=== PATIENT | female | born 1950 | race Caucasian/White ===

== ENCOUNTER → 2016-05-12 | Outpatient (CLI) | payer BC ==
[~2016-05-12] MED LIST: AMOX500C3 PO; ASPI-390 PO; ASPI325T39 PO; BUPR150T5 PO; CLR10 PO; DIPH25CA65 PO; FRS/40 PO; IBUP-103 PO; IBUP-1050 PO; LAMO100T16 PO; MELATAB2 PO; MULT-730 PO; NXM/40 PO; ONDA4TAB46 PO; OXYC-57 PO; POLYSOL4 OP; POTA8CAP6 PO; RSTOPS OPB; WLLXL300 PO
--- NOTE | 2016-05-13 07:31 | MAMMOGRAPHY REPORT ---
BILATERAL DIGITAL SCREENING MAMMOGRAM WITH CAD: 05/12/2016 CLINICAL HISTORY: Routine screening. Patient has no complaints. TECHNIQUE: Current study was also evaluated with a Computer Aided Detection (CAD) system. Bilatera l CC and MLO views were obtained. COMPARISON: Comparison is made to exams dated: 05/11/2015 mammogram, 05/08/2013 mammogram, 05/07/2012 m ammogram, 05/04/2011 mammogram, 04/29/2010 mammogram, and 05/09/2014 mammogram - [facility]. BREAST COMPOSITION: The tissue of both breasts is heterogeneously dense, which may obscure small ma sses. FINDINGS: No suspicious masses, calcifications, or areas of architectural distortion are noted in e ither breast. There has been no significant interval change compared to prior exams. IMPRESSION: ACR BI-RADS CATEGORY 1: NEGATIVE There is no mammographic evidence of malignancy. A 1 year screening mammogram is recommended. The p atient will receive written notification of the results. Approximately 10% of breast cancers are not detected with mammography. A negative mammographic repor t should not delay biopsy if a clinically suggestive mass is present. Sarah Bustamante M.D. /:05/12/2016 15:23:12 Telegrapher Agent: Sujey Elena, [facility] letter sent: Normal 1/2 BI-RADS Code: ACR BI-RADS Category 1: Negative
== END | disposition home or self-care (01) ==
LOC: C.MAMM 14:48
PROVIDERS: ATTEND Obstetrics & Gynecology
DX: Z12.31 Encounter for screening mammogram for malignant neoplasm of breast (principal)

== ENCOUNTER 2016-06-23 07:42 | Emergency (ER) | payer BC ==
[~2016-06-23] VITALS: Ht 172.7 cm; Wt 78.5 kg
[~2016-06-23 07:42] MED LIST changes: -AMOX500C3 PO; -ASPI-390 PO; -ASPI325T39 PO; -DIPH25CA65 PO; -IBUP-103 PO; -LAMO100T16 PO; -MELATAB2 PO; -ONDA4TAB46 PO; -OXYC-57 PO; -POLYSOL4 OP
[2016-06-23 07:51] VITALS: TEMP 36.5; Ht 172.7 cm; Wt 78.5 kg
[2016-06-23] MEDS ORDERED: ONDANSETRON INJ 2 MG/ML 2 ML VIAL IV STA (07:59)
[2016-06-23] MEDS ORDERED: ASPIRIN 324 MG CHEW PO STA (07:59)
[2016-06-23] MEDS ORDERED: MoRPHine SULFATE 10 MG/ML CARP/VIAL IV STA (07:59)
[2016-06-23 08:15] LABS: BASO % 0.4 %; BASO ABS # 0.04 K/uL (0-0.2); COMPLETE YES; EOS % 3.2 %; HEMATOCRIT 40.5 % (37-47); IG% 0.3 %; LYMPH % 39.1 %; LYMPH ABS # 3.93 K/uL (1.2-3.4); MEAN CELL VOLUME 81.3 fL (80-100); MEAN CORPUSCULAR HEMOGLOBIN 28.5 pg (25-34); MEAN CORPUSCULAR HGB CONC 35.1 g/dl (32-36); MEAN PLATELET VOLUME 9.3 fL (7.4-10.4); MONO % 6.5 %; NEUT % 50.5 %; PLATELET COUNT 423 K/uL (130-400); RED BLOOD COUNT 4.98 M/uL (4.2-5.4); WHITE BLOOD COUNT 10.05 K/uL (4.8-10.8)
[2016-06-23] MEDS ORDERED: ASPI325T39 PO (08:23)
[2016-06-23] MEDS ORDERED: OPTIRAY 320 IV PRN (08:30)
[2016-06-23] MEDS ORDERED: MoRPHine SULFATE 4 MG/ML 1 ML CARP\\VIAL IV STA (08:33)
--- NOTE | 2016-06-23 08:37 | DIAGNOSTIC IMAGING REPORT ---
CHEST ONE VIEW PORTABLE CLINICAL HISTORY: chest pain dyspnea COMPARISON STUDY: 12/03/2014 FINDINGS: Suboptimal visibility right cardiac border. Possibly of a lungs otherwise appear clear. Right middle lobe infiltrate is considered. IMPRESSION: Possible small parenchymal infiltrate right middle lobe Electronically signed by: Leonel Dewitt M.D. 06/23/2016 8:35 AM Dictated Date/Time: 06/23/2016 8:34 AM
[2016-06-23 08:49] LABS: ALT/SGPT 22 U/L (12-78); BLOOD UREA NITROGEN 17 mg/dl (7-18); BUN/CREATININE RATIO 15.3 (10-20); CALCIUM 9.8 mg/dl (8.5-10.1); CARBON DIOXIDE 24 mmol/L (21-32); CHLORIDE 104 mmol/L (98-107); GLUCOSE 121 mg/dl (70-99); SODIUM 138 mmol/L (136-145)
[2016-06-23 09:02] VITALS: O2SAT 99
[2016-06-23 09:21] VITALS: PULSE 68
[2016-06-23 09:27] LABS: ALKALINE PHOSPHATASE 96 U/L (45-117); AST/SGOT 17 U/L (15-37); CKMB/CK RATIO 1.8 (0-3.0)
--- NOTE | 2016-06-23 09:30 | DIAGNOSTIC IMAGING REPORT ---
CT ANGIOGRAPHY OF THE CHEST WITH AND WITHOUT CONTRAST DISSECTION PROTOCOL CLINICAL HISTORY: Severe chest, back and epigastric pain. Diaphoresis. Nausea. COMPARISON STUDY: Chest CT January 10, 2017. TECHNIQUE: Unenhanced and arterial phase imaging of the chest was performed. Injection of 117 cc of Optiray 320 IV was uneventful. Sagittal and coronal reconstructions were viewed as well as maximal intensity projections on an independent 3-D workstation. FINDINGS: The caliber of the thoracic aorta is normal. There is no intramural hematoma or thoracic aortic dissection. The size of the heart is normal. There is no pericardial effusion. A small hiatal hernia is present. There is no pneumothorax or pneumomediastinum. No pulmonary emboli are identified. No thoracic lymphadenopathy is present. A 1.6 cm partially calcified right lobe thyroid nodule is unchanged since CT of January 10, 2007. No consolidation is identified to suggest pneumonia. Groundglass opacities favor atelectasis. There is mild emphysema. Central airways are patent. Bony thorax is unremarkable. Mild gallbladder distention is noted without pericholecystic infiltration. IMPRESSION: 1. No thoracic aortic dissection. 2. No acute intrathoracic findings. 3. Small hiatal hernia. 4. Mild gallbladder distention. No pericholecystic infiltration. Electronically signed by: Erickson Argueta M.D. 06/23/2016 9:28 AM Dictated Date/Time: 06/23/2016 9:17 AM
[2016-06-23] MEDS ORDERED: LAMO100T16 PO (11:11)
--- NOTE | 2016-06-23 11:29 | DIAGNOSTIC IMAGING REPORT ---
Right upper quadrant ultrasound GALLBLADDER-ABD LIMITED CLINICAL HISTORY: nausea, rt upper quad pain pain. Nausea. TECHNIQUE: Ultrasound COMPARISON STUDY: 01/26/2015 FINDINGS: Trace gallbladder sludge. No shadowing gallstones. Common bile duct 6 mm. Fatty infiltration of liver. Pancreas and right kidney are unremarkable. No evidence for hydronephrosis. IMPRESSION: 1. Fatty infiltration of liver. 2. Small amount of gallbladder sludge. 3. Normal caliber bile ducts. Electronically signed by: Loenel Dewitt M.D. 06/23/2016 11:28 AM Dictated Date/Time: 06/23/2016 11:27 AM
[2016-06-23 11:56] VITALS: BP 121/66; O2SAT 96
[2016-06-23 12:12] LABS: URINE APPEARANCE CLEAR (CLEAR); URINE BILIRUBIN NEG (NEG); URINE COLOR YELLOW; URINE NITRITE NEG (NEG); URINE SPECIFIC GRAVITY > 1.045 (1.000-1.030); UROBILINOGEN NEG (NEG); ZZUR CULT IF INDIC CLEAN CATCH NO
[2016-06-23 12:14] LABS: MANUAL MICROSCOPIC REQUIRED? NO; REVIEW REQ? NO
--- NOTE | 2016-06-23 12:18 | EMERGENCY ROOM VISIT NOTE ---
History First contact with patient: 07:53 Chief Complaint: ABDOMINAL PAIN Stated Complaint: CHEST PAINS, NAUSEA, SWEATING, BACK PAIN Nursing Triage Summary: Triage note: Pt reports upper mid abd pain since approx 0430 today. pt reports nausea and vomitting. pt denies any diarrhrea. pt reports hx of hiatal hernia. History of Present Illness The patient is a 65 year old female who presents to the Emergency Room with complaints of epigastric pain at 4:30 this morning. The patient states initially it felt like a a pressure feeling that went up and down from her epigastric region to mid chest. Then it just started coming sharp in nature in the epigastric region and wrapping around both sides to her back. The patient denies any pain radiating to her shoulder blade. The patient denies any shortness of breath. She does admit to nausea and vomiting but denies any diarrhea. The patient denies any change in urinary symptoms. The patient denies any frequency, urgency, dysuria or hematuria. The patient states that she does have a history of GERD for which she is on Nexium. She also has a hiatal hernia. She states she took Pepto-Bismol for her symptoms today but immediately vomited. She currently rates her pain at a 10 out of 10. The patient states that she recently started a diet and has lost 10 pounds. She denies any recent significant weight loss. Review of Systems 10 system review was performed and was negative unless stated otherwise history of present illness. Past Medical/Surgical History Medical Problems: (1) Deviated nasal septum (2) Low back pain (3) Osteoarthritis (4) Right Hip DJD Family History Patient reports no known family medical history. Social History Smoking Status: Never Smoker Alcohol Use: occasionally Drug Use: none Marital Status: Housing Status: lives with significant other Occupation Status: unemployed Current/Historical Medications Scheduled Bupropion HCl (Bupropion HCl Xl), 300 MG PO QAM Bupropion Hcl (Bupropion Hcl Xl), 150 MG PO QAM Esomeprazole Magnesium (Nexium), 40 MG PO BID Lamotrigine (Lamictal), 100 MG PO DAILY Multiple Vitamins W/ Minerals (Alive Womens 50+), 2 TAB PO DAILY Scheduled PRN Furosemide (Lasix), 40 MG PO DAILY PRN for MD ORDER Ibuprofen (Advil), 400 MG PO DAILY PRN for Pain Loratadine (Claritin), 10 MG PO DAILY PRN for PRN Potassium Chloride (Klor-Con Ext Rel), 8 MEQ PO DAILY PRN for IF TAKING LASIX Miscellaneous Medications Aspirin (Aspirin Ec), 325 MG PO Allergies Coded Allergies: Sulfa Antibiotics (Verified Allergy, Intermediate, Rash / Swelling, ) Citalopram (Verified Allergy, Mild, rash,SWELLING, 07/26/15) Carisoprodol (Verified Allergy, Unknown, per cardio note, 07/26/15) Hydromorphone (Verified Adverse Reaction, Mild, ITCHING, 07/26/15) pt states will take after pretreating with benadryl Sumatriptan (Verified Adverse Reaction, Mild, UNDER SKIN SENSATION CREEPING, 07/26/15) Meperidine (Verified Adverse Reaction, Unknown, VOMITING, 07/26/15) Oxycodone (Verified Adverse Reaction, Unknown, pruritis per cardio note, ) Physical Exam Vital Signs Date Time Temp Pulse Resp B/P Pulse Ox O2 Delivery O2 Flow Rate FiO2 06/23/16 11:56 121/66 96 Room Air 06/23/16 09:21 68 150/78 98 Nasal Cannula 06/23/16 09:02 99 Nasal Cannula 2.0 06/23/16 08:58 65 181/89 98 Nasal Cannula 2.0 06/23/16 08:00 70 06/23/16 07:54 97 Room Air 06/23/16 07:51 36.5 81 20 163/115 96 Room Air Physical Exam GENERAL: 65-year-old white female appears uncomfortable secondary to pain. MENTAL Status: Alert and oriented 3. MOUTH: Mucosa is moist NECK: Supple, no lymphadenopathy noted. No carotid bruits noted. LUNGS: Clear auscultation without wheezes rales or rhonchi. CARDIAC: Regular rate and rhythm without murmur. Pulses is full and equal throughout. BACK: No CVA tenderness noted. ABDOMEN: Positive bowel sounds all 4 quadrants. Soft, tenderness palpation in the epigastric region otherwise nontender to palpation without organomegaly or masses. EXTREMITIES: No cyanosis or edema noted. Medical Decision & Procedures ER Provider Diagnostic Interpretation: CT ANGIOGRAPHY OF THE CHEST WITH AND WITHOUT CONTRAST DISSECTION PROTOCOL CLINICAL HISTORY: Severe chest, back and epigastric pain. Diaphoresis. Nausea. COMPARISON STUDY: Chest CT January 10, 2017. TECHNIQUE: Unenhanced and arterial phase imaging of the chest was performed. Injection of 117 cc of Optiray 320 IV was uneventful. Sagittal and coronal reconstructions were viewed as well as maximal intensity projections on an independent 3-D workstation. FINDINGS: The caliber of the thoracic aorta is normal. There is no intramural hematoma or thoracic aortic dissection. The size of the heart is normal. There is no pericardial effusion. A small hiatal hernia is present. There is no pneumothorax or pneumomediastinum. No pulmonary emboli are identified. No thoracic lymphadenopathy is present. A 1.6 cm partially calcified right lobe thyroid nodule is unchanged since CT of January 10, 2007. No consolidation is identified to suggest pneumonia. Groundglass opacities favor atelectasis. There is mild emphysema. Central airways are patent. Bony thorax is unremarkable. Mild gallbladder distention is noted without pericholecystic infiltration. IMPRESSION: 1. No thoracic aortic dissection. 2. No acute intrathoracic findings. 3. Small hiatal hernia. 4. Mild gallbladder distention. No pericholecystic infiltration. Electronically signed by: Erickson Argueta M.D. 06/23/2016 9:28 AM Dictated Date/Time: 06/23/2016 9:17 AM Right upper quadrant ultrasound GALLBLADDER-ABD LIMITED CLINICAL HISTORY: nausea, rt upper quad pain pain. Nausea. TECHNIQUE: Ultrasound COMPARISON STUDY: 01/26/2015 FINDINGS: Trace gallbladder sludge. No shadowing gallstones. Common bile duct 6 mm. Fatty infiltration of liver. Pancreas and right kidney are unremarkable. No evidence for hydronephrosis. IMPRESSION: 1. Fatty infiltration of liver. 2. Small amount of gallbladder sludge. 3. Normal caliber bile ducts. Electronically signed by: Leonel Dewitt M.D. Laboratory Results 06/23/16 07:55 Red Blood Count 4.98, Mean Corpuscular Volume 81.3, Mean Corpuscular Hemoglobin 28.5, Mean Corpuscular Hemoglobin Concent 35.1, Mean Platelet Volume 9.3, Neutrophils (%) (Auto) 50.5, Lymphocytes (%) (Auto) 39.1, Monocytes (%) (Auto) 6.5, Eosinophils (%) (Auto) 3.2, Basophils (%) (Auto) 0.4, Neutrophils # (Auto) 5.08, Lymphocytes # (Auto) 3.93, Monocytes # (Auto) 0.65, Eosinophils # (Auto) 0.32, Basophils # (Auto) 0.04 06/23/16 07:55 Test 06/23/16 07:55 06/23/16 10:42 06/23/16 11:50 White Blood Count 10.05 K/uL (4.8-10.8) Red Blood Count 4.98 M/uL (4.2-5.4) Hemoglobin 14.2 g/dL (12.0-16.0) Hematocrit 40.5 % (37-47) Mean Corpuscular Volume 81.3 fL (80-100) Mean Corpuscular Hemoglobin 28.5 pg (25-34) Mean Corpuscular Hemoglobin Concent 35.1 g/dl (32-36) Platelet Count 423 K/uL (130-400) Mean Platelet Volume 9.3 fL (7.4-10.4) Neutrophils (%) (Auto) 50.5 % Lymphocytes (%) (Auto) 39.1 % Monocytes (%) (Auto) 6.5 % Eosinophils (%) (Auto) 3.2 % Basophils (%) (Auto) 0.4 % Neutrophils # (Auto) 5.08 K/uL (1.4-6.5) Lymphocytes # (Auto) 3.93 K/uL (1.2-3.4) Monocytes # (Auto) 0.65 K/uL (0.11-0.59) Eosinophils # (Auto) 0.32 K/uL (0-0.5) Basophils # (Auto) 0.04 K/uL (0-0.2) RDW Standard Deviation 39.9 fL (36.4-46.3) RDW Coefficient of Variation 13.4 % (11.5-14.5) Immature Granulocyte % (Auto) 0.3 % Immature Granulocyte # (Auto) 0.03 K/uL (0.00-0.02) Anion Gap 10.0 mmol/L (3-11) Est Creatinine Clear Calc Drug Dose 56.9 ml/min Estimated GFR () 61.4 Estimated GFR (Non- 53.0 BUN/Creatinine Ratio 15.3 (10-20) Calcium Level 9.8 mg/dl (8.5-10.1) Total Bilirubin 0.3 mg/dl (0.2-1) Direct Bilirubin mg/dl (0-0.2) Aspartate Amino Transf (AST/SGOT) 17 U/L (15-37) Alanine Aminotransferase (ALT/SGPT) 22 U/L (12-78) Alkaline Phosphatase 96 U/L (45-117) Total Creatine Kinase 90 U/L (26-192) Creatine Kinase MB 1.6 ng/ml (0.5-3.6) Creatine Kinase MB Ratio 1.8 (0-3.0) Pro-B-Type Natriuretic Peptide 65 pg/ml (0-900) Total Protein 7.7 gm/dl (6.4-8.2) Albumin 4.4 gm/dl (3.4-5.0) Lipase 168 U/L (73-393) Chemistry Specimen Hemolysis Bedside Troponin I 0.000 ng/ml (0-0.045) Medications Administered Medications (Trade) Dose Ordered Sig/Natalya Route Start Time Stop Time Status Last Admin Dose Admin Aspirin (Aspirin Chew) 324 mg NOW STAT PO 06/23/16 07:59 06/23/16 08:02 DC 06/23/16 08:07 324 MG Morphine Sulfate (MoRPHine SULFATE INJ) 6 mg NOW STAT IV 06/23/16 07:59 06/23/16 08:03 DC 06/23/16 08:07 6 MG Ondansetron HCl (Zofran Inj) 4 mg NOW STAT IV 06/23/16 07:59 06/23/16 08:03 DC 06/23/16 08:06 4 MG Morphine Sulfate (MoRPHine SULFATE INJ) 4 mg NOW STAT IV 06/23/16 08:33 06/23/16 08:34 DC 06/23/16 08:40 4 MG ECG Indication: vomiting Rhythm: normal sinus Findings: no acute ischemic change ED Course The patient was evaluated. EKG was ordered and interpreted as above. The patient was placed on a monitor and continuous pulse ox. IV access was obtained. The patient was given 324 mg of chewable aspirin. She was given morphine 6 mg IV and Zofran 4 mg IV. The patient continued to be in pain and was given additional 4 mg of IV morphine. CBC and differential, renal profile, LFTs and lipase levels were ordered. Urinalysis was ordered. Urinalysis was unremarkable. Troponin was negative 2. Labs are reviewed. White count was normal. Otherwise labs were unremarkable. LFTs were normal. Chest x-ray was ordered and interpreted by the radiologist as above without any acute findings. CT angiogram for dissection was ordered without any acute findings. Ultrasound of the gallbladder was ordered and interpreted as above with sludge within the gallbladder. The patient was informed of all findings and discharged home in stable condition. Medical Decision Differential diagnosis include acute [place], peptic ulcer disease, acute cholecystitis, cholelithiasis, GERD Due to the findings of sludge within the gallbladder I feel that this was most likely the etiology of her pain. Impression Primary Impression: Gallbladder sludge Departure Information Dispostion Home / Self-Care Condition GOOD Referrals Ty Tate M.D. (PCP) Forms HOME CARE DOCUMENTATION FORM, IMPORTANT VISIT INFORMATION Patient Instructions My [facility] [facility] Additional Instructions Recommend follow-up with your family doctor for a follow-up HIDA scan of your gallbladder. Further evaluation and treatment will be based upon scan results. Also if you have recurrent symptoms return to ER immediately. Also would recommend that you get your cholesterol checked by her PCP. Low-fat diet until evaluated by your PCP.
[2016-09-23] MEDS ORDERED: POLYSOL4 OP (13:56)
[2016-09-23] MEDS ORDERED: IBUP-103 PO (13:56)
[2016-09-23] MEDS ORDERED: MELATAB2 PO (13:56)
[2016-09-23] MEDS ORDERED: AMOX500C3 PO (13:56)
[2016-09-23] MEDS ORDERED: DIPH25CA65 PO (13:56)
[2016-09-23] MEDS ORDERED: ASPI-390 PO (13:58)
== END 2016-06-23 12:23 | disposition home or self-care (01) ==
LOC: C.EDB 07:46
DX: K83.8 Other specified diseases of biliary tract (principal); K21.9 Gastro-esophageal reflux disease without esophagitis; K44.9 Diaphragmatic hernia without obstruction or gangrene; J34.2 Deviated nasal septum; M16.11 Unilateral primary osteoarthritis, right hip

== ENCOUNTER → 2016-06-30 | Outpatient (CLI) | payer BC ==
[~2016-06-30] MED LIST changes: +AMOX500C3 PO; +ASPI-390 PO; +ASPI325T39 PO; +DIPH25CA65 PO; +IBUP-103 PO; +LAMO100T16 PO; +MELATAB2 PO; +ONDA4TAB46 PO; +OXYC-57 PO; +POLYSOL4 OP; -RSTOPS OPB; +SINCALIDE INJ 1.5 MCG in SODIUM CHLORIDE 0.9% 100ML 100 ML IV ONE
--- NOTE | 2016-06-30 15:24 | DIAGNOSTIC IMAGING REPORT ---
ADDENDUM Addendum: There was a voice recognition error in the body report and impression. The gallbladder ejection fraction was 19% (incorrectly reported as 90%). IMPRESSION: 1. No evidence of cystic duct obstruction 2. Abnormally low gallbladder ejection fraction calculated to be 19% Electronically signed by: Teddy Castellon M.D. 07/06/2016 6:51 AM Dictated Date/Time: 07/06/2016 6:50 AM ORIGINAL REPORT NUCLEAR MEDICINE HEPATOBILIARY SCAN WITH EJECTION FRACTION HISTORY: Abnormal gallbladder ultrasound. COMPARISON: Abdominal ultrasound 06/23/2016. TECHNIQUE: Immediately following the intravenous administration of 5.4 mCi Tc-99m Choletec, dynamic anterior abdominal imaging pre/post 1.5 mcg of Kinevac was performed. FINDINGS: Uniform hepatic tracer accumulation is shown. Prompt intrahepatic biliary excretion is seen. The gallbladder, common bile duct, and small bowel are all visualized by 35 minutes. This appearance represents the normal sequence of biliary excretion. The gall bladder ejection fraction following administration of Kinevac was 90% (normal >35%). IMPRESSION: 1. No evidence for cystic duct obstruction. 2. Abnormally low gallbladder ejection fraction calculated to be 90 %. Electronically signed by: Edison Bermudez M.D. 06/30/2016 3:23 PM Dictated Date/Time: 06/30/2016 3:22 PM
== END | disposition home or self-care (01) ==
LOC: C.NUCL 12:53
PROVIDERS: ATTEND Family Medicine
DX: R93.2 Abnormal findings on diagnostic imaging of liver and biliary tract (principal)

== ENCOUNTER → 2016-09-23 | Outpatient (CLI) | payer BC ==
[~2016-09-23] MED LIST changes: -SINCALIDE INJ 1.5 MCG in SODIUM CHLORIDE 0.9% 100ML 100 ML IV ONE
--- NOTE | 2016-09-23 12:58 | DIAGNOSTIC IMAGING REPORT ---
THYROID ULTRASONOGRAPHY CLINICAL HISTORY: E04.1 Right thyroid nodule COMPARISON STUDY: No previous studies for comparison. FINDINGS: The right lobe of thyroid measures 4.8 x 1.7 x 2.4 cm. There is diffuse in image 80 of thyroid echotexture. There is an irregular marginated lower pole right lobe thyroid nodule containing multiple calcifications measuring 24 x 17 x 18 mm. There are few tiny upper pole cystic nodules on the right. The left lobe measures 4.6 x 1.3 x 1.7 cm. The lobe is heterogeneous in echotexture. There are multiple hypoechoic circumscribed nodules, the 2 largest of which measures 7 mm. At least one of the nodules demonstrate colloid artifact. IMPRESSION: Multinodular thyroid gland. Biopsy of the irregularly marginated lower pole right lobe thyroid nodule containing multiple calcifications measuring 24 x 18 x 17 mm is recommended. Electronically signed by: Teddy Castellon M.D. 09/23/2016 12:57 PM Dictated Date/Time: 09/23/2016 12:53 PM
== END | disposition home or self-care (01) ==
LOC: C.ULTR 12:12
PROVIDERS: ATTEND Physician Assistant
DX: E04.1 Nontoxic single thyroid nodule (principal)

== ENCOUNTER 2016-10-06 05:17 | Day surgery (SDC) | payer BC ==
[2016-09-23 13:59] VITALS: BMI 24.0
[2016-09-23 14:05] LABS: BASO % 0.7 %; BASO ABS # 0.04 K/uL (0-0.2); COMPLETE YES; EOS % 4.4 %; IG% 0.4 %; LYMPH % 30.1 %; MEAN CELL VOLUME 85.3 fL (80-100); MEAN CORPUSCULAR HEMOGLOBIN 28.7 pg (25-34); MEAN CORPUSCULAR HGB CONC 33.6 g/dl (32-36); MEAN PLATELET VOLUME 9.2 fL (7.4-10.4); MONO % 6.2 %; NEUT % 58.2 %; PLATELET COUNT 348 K/uL (130-400); RED BLOOD COUNT 4.57 M/uL (4.2-5.4); WHITE BLOOD COUNT 5.64 K/uL (4.8-10.8)
[2016-09-23 14:29] LABS: BUN/CREATININE RATIO 16.3 (10-20); CREATININE 0.95 mg/dl (0.60-1.20); POTASSIUM 3.6 mmol/L (3.5-5.1)
--- NOTE | 2016-09-23 14:34 | PAT Medication Instructions ---
Service Date Sep 23, 2016. Current Home Medication List Amoxicillin (Amoxil), 2,000 MG PO UD Vbramjr-Lggakifhuapsq-Aqzbjwbb (Excedrin Migraine), 2 TAB PO PRN Bupropion HCl (Bupropion HCl Xl), 300 MG PO QAM Bupropion Hcl (Bupropion Hcl Xl), 150 MG PO QAM Diphenhydramine Hcl (Benadryl Allergy), 1 CAP PO HS PRN for PRN Esomeprazole Magnesium (Nexium), 40 MG PO QAM Furosemide (Lasix), 40 MG PO DAILY PRN for MD ORDER Ibuprofen Tab (Advil), 600-800 MG PO PRN Lamotrigine (Lamictal), 100 MG PO QAM Melatonin (Melatonin Maximum Strengt), 1 TAB PO HS PRN for PRN Multiple Vitamins W/ Minerals (Alive Womens 50+), 2 TAB PO DAILY Polyethylene Glycol-Propylene (Systane), 1 DROPS OP QID PRN for PRN Potassium Chloride (Klor-Con Ext Rel), 8 MEQ PO DAILY PRN for IF TAKING LASIX Medication Instructions For Your Scheduled Surgery Daqvgme-Kwdrgqspxujur-Ombglole (Excedrin Migraine), 2 TAB PO PRN (patient will check with surgeon for instructions) Ibuprofen Tab (Advil), 600-800 MG PO PRN (patient will check with surgeon for instructions) - Hold the following medications the morning of surgery: Potassium Chloride (Klor-Con Ext Rel), 8 MEQ PO DAILY PRN for IF TAKING LASIX Multiple Vitamins W/ Minerals (Alive Womens 50+), 2 TAB PO DAILY Furosemide (Lasix), 40 MG PO DAILY PRN for MD ORDER Amoxicillin (Amoxil), 2,000 MG PO UD (PRN for dental procedures) - Take the following medications the morning of surgery with a sip of water: Polyethylene Glycol-Propylene (Systane), 1 DROPS OP QID PRN for PRN Lamotrigine (Lamictal), 100 MG PO QAM Esomeprazole Magnesium (Nexium), 40 MG PO QAM Bupropion HCl (Bupropion HCl Xl), - Take the following medications as scheduled the night before surgery: Polyethylene Glycol-Propylene (Systane), 1 DROPS OP QID PRN for PRN Melatonin (Melatonin Maximum Strengt), 1 TAB PO HS PRN for PRN Diphenhydramine Hcl (Benadryl Allergy), 1 CAP PO HS PRN for PRN If you have any questions please call us at [phone] or [phone] ( [place]) or [phone]
[~2016-10-06] VITALS: Ht 172.7 cm; Wt 72.2 kg
[~2016-10-06 05:17] MED LIST changes: -ASPI325T39 PO; -CLR10 PO; -IBUP-1050 PO; -ONDA4TAB46 PO; -OXYC-57 PO
[2016-10-06 05:35] VITALS: BP 119/61; PULSE 73; TEMP 36.6; O2SAT 98; Ht 172.7 cm; Wt 72.2 kg
[2016-10-06] MEDS ORDERED: LACTATED RINGER'S 1000ML 1,000 ML IV SCH ×2 (06:00→08:29)
[2016-10-06] MEDS ORDERED: NEOSTIGMINE METHYLSULFATE 5 MG/5 ML SYR ONE (06:13)
[2016-10-06] MEDS ORDERED: GLYCOPYRROLATE INJ 0.2 MG/ML VIAL ONE (06:13)
[2016-10-06] MEDS ORDERED: ONDANSETRON INJ 2 MG/ML 2 ML VIAL ONE (06:13)
[2016-10-06] MEDS ORDERED: DEXAMETHASONE SOD INJ 4 MG/ML VIAL ONE (06:13)
[2016-10-06] MEDS ORDERED: ROCURONIUM BROMIDE 10 MG/ML 5 ML VIAL ONE (06:13)
[2016-10-06] MEDS ORDERED: PROPOFOL IV EMULSION 10 MG/ML 20 ML VIAL IV ONE (06:13)
[2016-10-06] MEDS ORDERED: MIDAZOLAM HCL 1 MG/ML 2ML VIAL ONE (06:14)
[2016-10-06] MEDS ORDERED: FENTANYL CITRATE INJ 50 MCG/1 ML 2 ML VIAL ONE (06:14)
[2016-10-06] MEDS ORDERED: LIDOCAINE/EPINEPHRINE 1% 20 ML VIAL ONE (06:36)
[2016-10-06] MEDS ORDERED: CONRAY 60% 50 ML VIAL ONE (06:36)
--- NOTE | 2016-10-06 06:45 | History & Physical Bridge Note ---
H&P Re-Evaluation Bridge Note: I have examined the patient, reviewed the History & Physical and in the interval since the performance of the History & Physical I have noted the following changes of clinical significance: No changes noted at bedside
[2016-10-06] MEDS ORDERED: LABETALOL HCL IV 5 MG/ML 20ML IV ONE (07:33)
[2016-10-06] MEDS ORDERED: CEFAZOLIN SOD 1 GM VIAL ONE (07:40)
[2016-10-06] MEDS ORDERED: GLUCAGON FOR INJ 1 MG VIAL ONE (07:51)
[2016-10-06] MEDS ORDERED: LARYING-O-JET KIT (LTA) ONE ×2 (08:05)
[2016-10-06] MEDS ORDERED: KETOROLAC TROMETHAMINE 30 MG/ML VIAL ONE (08:05)
[2016-10-06] MEDS ORDERED: ONDANSETRON INJ 2 MG/ML 2 ML VIAL IV PRN ×2 (08:15→08:30)
[2016-10-06] MEDS ORDERED: PROMETHAZINE HCL INJ 6.25 MG in SODIUM CHLORIDE 0.9% 50ML 50 ML IV PRN (08:15)
[2016-10-06] MEDS ORDERED: EpHEDrine SULFATE INJ 50 MG/ML AMP IV PRN (08:15)
[2016-10-06] MEDS ORDERED: ATROPINE SULFATE 0.1 MG/ML 5ML SYR IV PRN (08:15)
--- NOTE | 2016-10-06 08:24 | DIAGNOSTIC IMAGING REPORT ---
INTRAOPERATIVE CHOLANGIOGRAM HISTORY: Post cholecystectomy. FLUOROSCOPY TIME: 3 seconds. FINDINGS: Fluoroscopy was provided for an intraoperative cholangiogram status post cholecystectomy. Contrast was injected through the cystic duct remnant. The common bile duct is normal in course and caliber. There are no filling defects seen within the common bile duct to suggest a retained stone. This is seen only on the final image. Images prior demonstrate a small amount of debris within the distal common duct. Contrast extends into the small bowel. There is no intrahepatic bile duct dilatation. IMPRESSION: Fluoroscopy provided for an intraoperative cholangiogram status post cholecystectomy. No filling defects within the common bile duct. Initial images demonstrate debris within the distal common duct. This is not seen on the final image. Electronically signed by: Leonel Dewitt M.D. 10/06/2016 8:23 AM Dictated Date/Time: 10/06/2016 8:21 AM
[2016-10-06] MEDS ORDERED: OXYCODONE/ACETAMINOPHEN 5-325 TAB PO PRN (08:30)
[2016-10-06] MEDS ORDERED: MoRPHine SULFATE 2 MG/ML CARP IV PRN (08:30)
[2016-10-06] MEDS ORDERED: OXYC-57 PO (08:30)
--- NOTE | 2016-10-06 08:31 | [facility] Post Operative Brief Note ---
Immediate Operative Summary Operative Date Oct 06, 2016. Pre-Operative Diagnosis Cholelithiasis Post-Operative Diagnosis Same with cbd stoes Procedure(s) Performed Laparoscopic Cholecystectomy with Cholangiogram Surgeon Dr Goldberg Trim Mechanic Surgeon(s) Jere Hung PA-C Estimated Blood Loss 10ML Findings ccc with cbc stones Specimens A. Gallbladder Drains #19 mitch per stab
--- NOTE | 2016-10-06 08:32 | Discharge Instructions ---
Discharge Instructions Date of Service Oct 06, 2016. Visit Reason for Visit: Cholelithiasis Discharge Discharge Diagnosis / Problem: laparoscpic cholecystectomy Discharge Goals Goal(s): Decrease discomfort Activity Recommendations Activity Limitations: as noted below Lifting Limitations: no more than 10 pounds Shower/Bathe: tomorrow Driving or Machine Use: resume 3 days after discharge Anesthesia . Post Anesthesia Instructions: If you have had General Anesthesia or IV Sedation: * Do not drive today. * Resume driving when surgeon permits. * Do not make important decisions or sign legal documents today. * Call surgeon for: 1. Temperature elevations greater than 101 degrees F. 2. Uncontrollable pain. 3. Excessive bleeding. 4. Persistent nausea and vomiting. 5. Medication intolerance (nausea, vomiting or rash). * For nausea and vomiting use only clear liquids such as: tea, soda, bouillon until nausea subsides, then gradually increase diet as tolerated. * If you have any concerns or questions, call your surgeon's office. If physician is unavailable and it is an emergency, call 911 or go to the nearest emergency room. . Instructions / Follow-Up Instructions / Follow-Up Dr. Goldberg's office on Monday to have drain removed, call [phone] to schedule Empty drain 2-3 times daily Diet Recommendations Recommended Home Diet: no limitations Procedures Procedures Performed: Laparoscopic Cholecystectomy with Cholangiogram Pending Studies Studies pending at discharge: no Medical Emergencies . Who to Call and When: Medical Emergencies: If at any time you feel your situation is an emergency, please call 911 immediately. . Non-Emergent Contact Non-Emergency issues call your: Surgeon Call Non-Emergent contact if: you have a fever, temperature is above 101.5, your pain is not controlled, wound has increased redness, you have any medication questions . . "Provider Documentation" section prepared by Jere Hnug. .
--- NOTE | 2016-10-06 08:39 | [facility] Operative Report ---
Operative Report Operative Date Oct 06, 2016. Pre-Operative Diagnosis Cholelithiasis Post-Operative Diagnosis ccc and cbd stone Procedure(s) Performed lap cholecystectomy, c,gram Surgeon Dr Goldberg Fiber Optic Assembler Surgeon(s) Jere Hung PA-C Estimated Blood Loss 10ML Findings ccc and cbd stones Specimens A. Gallbladder Drains #19 mitch per stab I attest to the content of the Intraoperative Record and any orders documented therein. Any exceptions are noted below.
[2016-10-06] MEDS: FENTANYL CITRATE INJ 50 MCG/1 ML 2 ML VIAL IV PRN ×2 (08:46→09:04)
--- NOTE | 2016-10-06 09:29 | Anesthesiology Progress Note ---
Anesthesia Post Op Note Date & Time Oct 06, 2016 at 09:28 Vital Signs Pain Intensity: 4 Vital Signs Past 12 Hours Date Time Temp Pulse Resp B/P (MAP) Pulse Ox O2 Delivery O2 Flow Rate FiO2 10/06/16 09:26 131/75 10/06/16 09:23 60 16 93 10/06/16 09:23 59 16 10/06/16 09:21 122/60 10/06/16 09:18 62 16 10/06/16 09:18 62 16 92 10/06/16 09:17 64 16 94 10/06/16 09:17 66 16 10/06/16 09:16 125/66 10/06/16 09:12 60 16 95 10/06/16 09:12 61 16 10/06/16 09:11 122/77 10/06/16 09:07 58 16 10/06/16 09:07 59 16 97 10/06/16 09:06 127/59 10/06/16 09:04 66 14 97 10/06/16 09:04 66 14 10/06/16 09:01 121/52 10/06/16 08:59 63 16 10/06/16 08:59 64 16 97 10/06/16 08:58 63 16 10/06/16 08:58 64 16 96 10/06/16 08:56 135/62 10/06/16 08:53 66 16 10/06/16 08:53 66 16 92 10/06/16 08:52 137/82 10/06/16 08:48 62 16 10/06/16 08:48 62 16 99 10/06/16 08:47 67 16 99 10/06/16 08:47 67 16 10/06/16 08:46 166/70 10/06/16 08:42 71 12 99 10/06/16 08:42 71 12 10/06/16 08:41 156/71 10/06/16 08:37 77 18 152/90 99 10/06/16 08:37 77 18 10/06/16 08:33 169/72 10/06/16 08:32 77 18 10/06/16 08:32 36.3 78 16 169/72 98 Mask 10 10/06/16 08:32 77 18 99 10/06/16 05:35 36.6 73 18 119/61 (80) 98 Room Air Notes Mental Status: alert / awake / arousable, participated in evaluation Pt Amnestic to Procedure: Yes Nausea / Vomiting: adequately controlled Pain: adequately controlled Airway Patency, RR, SpO2: stable & adequate BP & HR: stable & adequate Hydration State: stable & adequate Anesthetic Complications: no major complications apparent
[2016-10-06 09:35] VITALS: BP 129/64; PULSE 68; TEMP 36.6; O2SAT 95
[2016-10-06 10:05] VITALS: BP 128/58; PULSE 60; TEMP 36.3; O2SAT 93
[2016-10-06 10:40] VITALS: BP 129/56; PULSE 66; TEMP 36.6; O2SAT 96
[2016-10-06 11:05] VITALS: BP 129/56; PULSE 66; TEMP 36.6; O2SAT 96
[2016-10-06] MEDS ORDERED: ONDA4TAB46 PO (19:47)
--- NOTE | 2016-10-14 09:29 | [facility] Operative Report ---
Operative Report Operative Date Oct 14, 2016. Pre-Operative Diagnosis Cholelithiasis Post-Operative Diagnosis Same with cbd stoes Procedure(s) Performed Laparoscopic Cholecystectomy with Cholangiogram Surgeon Dr Goldberg Animal Taxonomist Surgeon(s) Jere Hung PA-C Estimated Blood Loss 10ML Findings ccc with cbd stones Specimens A. Gallbladder Drains #19 mitch per stab Description of Procedure After induction of general the abdomen was prepped with Betadine solution and properly draped. The patient was quite obese, had a very thin abdominal wall. We made a small incision supraumbilically sufficient enough to place a 5 mm trocar after we placed the Veress needle and CO2 insufflated. At this point once we entered the camera, we placed the patient in reverse Trendelenburg position, rotated to the left. Under direct visualization, we placed a 5 mm epigastric, two 5 mm subcostal ports with preemptive local anesthesia 1% Xylocaine without epinephrine. We were able to elevate it with the lateral grasper, but it was difficult to get down to the luther hepatis and triangle of [place]. The patient had a significant amount of omental tissue that needed to be exposed, some adhesions to the gallbladder were taken down by blunt dissection and some sharp dissection. This necessitated to place another 5 mm trocar, which we did between the epigastric and umbilical area under direct visualization and then placed a fan retractor to push down the omentum. With dissection then we were down towards the neck of the gallbladder, identified a structure we were able to get around with that was small but appeared to be the cystic duct. We clamped it proximally high at the takeoff of the gallbladder. A small opening was made in this duct which showed some debris then clear bile. At this point, a #4 urethral catheter transversing the abdominal wall and an Angiocath was positioned in the cystic duct. Serial x-rays were taken which showed distal cbd stone, Glucagon given and cbd flushed , final cholangiogram free flow duodenum At this point the cholangiocatheter was removed. Two clips were placed on the cystic duct and secured in place and divided, then we freed up the gallbladder, a lot of this was edematous, mostly by blunt dissection, but we used cautery 25. We were able then to free up some of the fatty tissue that pretty much overlapped the whole gallbladder going up. We identified 2 small arteries that were coming out. We clipped them proximally and distally and were able then to free the gallbladder all the way up to the fundus of the gallbladder. We checked the area for hemostasis. There was some minimal oozing. I at this point, took the gallbladder off the liver bed, placed in an Endopouch and took out intact through the epigastric port. . We then checked the subhepatic and suprahepatic area for hemostasis and appeared satisfactory. 19 mitch drain positioned subhepatically and taken out lat port site. We had hemostasis good and we suctioned out the area. Therefore, we placed a camera in subcostal port to visualize the umbilical opening and the other ports to make sure there was no bleeding and then under direct visualization each port was removed. Wounds were closed with 4-0 Monocryl, Steri-Strips applied. The procedure was tolerated well by the patient. Estimated blood loss approximately 10 mL. The patient was taken to recovery room in good condition. I attest to the content of the Intraoperative Record and any orders documented therein. Any exceptions are noted below.
== END 2016-10-06 11:20 | disposition home or self-care (01) ==
LOC: C.ACU 05:17
PROVIDERS: ATTEND Surgery
DX: K80.12 Calculus of gallbladder with acute and chronic cholecystitis without obstruction (principal); K21.9 Gastro-esophageal reflux disease without esophagitis; F32.9 Major depressive disorder, single episode, unspecified; J34.2 Deviated nasal septum; Z78.0 Asymptomatic menopausal state; H40.9 Unspecified glaucoma; J34.3 Hypertrophy of nasal turbinates; G47.30 Sleep apnea, unspecified; E04.1 Nontoxic single thyroid nodule; Z87.891 Personal history of nicotine dependence; Z79.899 Other long term (current) drug therapy

== ENCOUNTER 2016-10-06 19:13 | Emergency (ER) | payer BC ==
[~2016-10-06] VITALS: Ht 172.7 cm; Wt 69.0 kg
[~2016-10-06 19:13] MED LIST changes: +OXYC-57 PO
[2016-10-06 19:20] VITALS: TEMP 36.8; Ht 172.7 cm; Wt 69.0 kg
[2016-10-06] MEDS ORDERED: SODIUM CHLORIDE 0.9% 1000ML 1,000 ML IV STA ×2 (19:47)
[2016-10-06] MEDS ORDERED: ONDA4TAB46 PO (19:47)
[2016-10-06] MEDS ORDERED: PROMETHAZINE HCL INJ 25 MG in SODIUM CHLORIDE 0.9% 50ML 50 ML IV STA ×2 (19:55→20:14)
[2016-10-06] MEDS ORDERED: HYDROmorphone INJ 1 MG/ML SYR IV PRN (20:00)
[2016-10-06 20:03] LABS: COMPLETE YES; HEMATOCRIT 39.1 % (37-47); IG% 0.1 %; LYMPH % 7.9 %; LYMPH ABS # 0.53 K/uL (1.2-3.4); MEAN CELL VOLUME 84.6 fL (80-100); MEAN CORPUSCULAR HGB CONC 34.3 g/dl (32-36); MEAN PLATELET VOLUME 9.3 fL (7.4-10.4); MONO % 2.5 %; NEUT % 89.5 %; PLATELET COUNT 336 K/uL (130-400); RED BLOOD COUNT 4.62 M/uL (4.2-5.4); WHITE BLOOD COUNT 6.71 K/uL (4.8-10.8)
[2016-10-06 20:14] LABS: BUN/CREATININE RATIO 13.3 (10-20); CALCIUM 9.5 mg/dl (8.5-10.1); CREATININE 0.91 mg/dl (0.60-1.20); POTASSIUM 4.1 mmol/L (3.5-5.1)
[2016-10-06] MEDS: MoRPHine SULFATE 4 MG/ML 1 ML CARP\\VIAL IV PRN ×2 (20:20→23:13)
--- NOTE | 2016-10-06 22:15 | DIAGNOSTIC IMAGING REPORT ---
PA CHEST RADIOGRAPH AND UPRIGHT AND SUPINE AP RADIOGRAPHS OF THE ABDOMEN CLINICAL HISTORY: Nausea and vomiting. Status post cholecystectomy this morning. COMPARISON STUDY: Chest radiograph June 23, 2016 and right upper quadrant ultrasound June 23, 2016. FINDINGS: There is moderate elevation of the right hemidiaphragm. There is no evidence of pulmonary edema. There is no pneumothorax. Right lower lung airspace opacity is present. Lucency under the right hemidiaphragm represents pneumoperitoneum. A right upper quadrant surgical drain is in place. There are cholecystectomy clips. A right hip arthroplasty is noted. There is no evidence of a bowel obstruction. There is a moderate amount of stool within the colon. Hyperdense material within the right lower quadrant likely reflects contrast from intraoperative cholangiogram. IMPRESSION: 1. No evidence for a bowel obstruction. Moderate amount of stool within the colon. 2. Small amount of pneumoperitoneum, an expected finding in early postoperative setting. Right upper quadrant surgical drain in place. Hyperdense material within the right lower quadrant likely reflects contrast from intraoperative cholangiogram. It's not clear whether this is intraluminal or extraluminal. 3. Right lower lung airspace opacity which favors atelectasis. Pneumonia could appear similar but is considered less likely. Electronically signed by: Erickson Argueta M.D. 10/06/2016 10:14 PM Dictated Date/Time: 10/06/2016 10:09 PM
[2016-10-06] MEDS ORDERED: PHENERGAN 25MG HOMEPACK PO ONE (22:45)
[2016-10-06] MEDS ORDERED: NORCO 5/325MG HOME PACK PO ONE (22:45)
[2016-10-06] MEDS ORDERED: SODIUM CHLORIDE 0.9% 500ML 500 ML IV STA (23:05)
[2016-10-06] MEDS ORDERED: ONDANSETRON 8 MG/54 ML D5W IV STA (23:05)
[2016-10-06 23:15] VITALS: BP 138/70; PULSE 78; O2SAT 98
[2016-10-07 00:27] LABS: URINE APPEARANCE CLEAR (CLEAR); URINE BILIRUBIN NEG (NEG); URINE COLOR YELLOW; URINE NITRITE NEG (NEG); URINE PH 7.5 (4.5-7.5); URINE SPECIFIC GRAVITY 1.016 (1.000-1.030); UROBILINOGEN NEG (NEG); ZZUR CULT IF INDIC CLEAN CATCH NO
[2016-10-07 00:40] LABS: MANUAL MICROSCOPIC REQUIRED? NO; REVIEW REQ? NO
--- NOTE | 2016-10-07 01:18 | EMERGENCY ROOM VISIT NOTE ---
History Report prepared by Fritz: Ridge Arciniega Under the Supervision of: Dr. Charles Galloway M.D. First contact with patient: 19:44 Chief Complaint: VOMITING Stated Complaint: S/P SURGERY, VOMITING/DRY HEAVING, HEADACHE, PAIN Nursing Triage Summary: patient states she had laprascopic cholecystectomy at 0730 today and was discharged around 1130. patient states since going home she has had pain at surgery site and nausea/vomiting. patient tried to take prescribed pain and nausea medication but vomitted. History of Present Illness The patient is a 66 year old female who presents to the Emergency Room with complaints of intermittent, worsening vomiting beginning this morning. The patient states that she had a cholecystectomy performed by Dr. Goldberg, General Surgery, performed this morning. She reports that she was in the recovery room and vomited. The patient notes she was given Percocet and was discharged. She states she went to sleep and woke up around 1200 and tried to eat. The patient reports that she vomited, and then went back to sleep. She notes that she tried to eat again 3 hours later, but she still vomited. The patient states that she was not able to take her Percocet since she keeps vomiting. She reports that she called her doctor, and he prescribed Zofran, but it did not help. The patient notes that she now has dry heaves. She states her first few episodes were green, and the last ones were siddiqui. The patient reports that she is nauseous and has a headache, neck stiffness, and lower back pain. She notes last time she had anesthesia was for a hip replacement, and she was told that she vomited twice after. Pt denies LOC, fevers, chills, diaphoresis, visual changes, chest pain, breathing difficulties, abdominal pain, melena, hematochezia, urinary symptoms, numbness, weakness, lymphadenopathy, rash, or other complaints. Source of History: patient Onset: this morning Position: other Quality: other (vomiting) Timing: intermittent, worsening Associated Symptoms: + headache, + neck pain (stiffness), + nausea, + back pain Review of Systems See HPI for pertinent positives and negatives. A total of ten systems were reviewed and were otherwise negative. Past Medical & Surgical Medical Problems: (1) Deviated nasal septum (2) Low back pain (3) Osteoarthritis (4) Right Hip DJD Family History Patient reports no known family medical history. Social History Smoking Status: Never Smoker Alcohol Use: occasionally Drug Use: none Marital Status: Housing Status: lives with significant other Occupation Status: unemployed Current/Historical Medications Scheduled Amoxicillin (Amoxil), 2,000 MG PO UD Tdxnnpx-Iabpncsinksfv-Tieoynmv (Excedrin Migraine), 2 TAB PO PRN Bupropion HCl (Bupropion HCl Xl), 300 MG PO QAM Bupropion Hcl (Bupropion Hcl Xl), 150 MG PO QAM Esomeprazole Magnesium (Nexium), 40 MG PO QAM Ibuprofen Tab (Advil), 600-800 MG PO PRN Lamotrigine (Lamictal), 100 MG PO QAM Multiple Vitamins W/ Minerals (Alive Womens 50+), 2 TAB PO DAILY Scheduled PRN Diphenhydramine Hcl (Benadryl Allergy), 1 CAP PO Q4-6H PRN for ALLERGIES Furosemide (Lasix), 40 MG PO DAILY PRN for MD ORDER Melatonin (Melatonin Maximum Strengt), 1 TAB PO HS PRN for PRN Ondansetron Hcl (Zofran), 4 MG PO Q6H PRN for Nausea Oxycodone/Acetaminophen 5MG/325MG (Percocet 5MG/325MG), 1-2 TABLETS PO Q4H PRN for Pain Polyethylene Glycol-Propylene (Systane), 1 DROPS OP QID PRN for PRN Potassium Chloride (Klor-Con Ext Rel), 8 MEQ PO DAILY PRN for IF TAKING LASIX Allergies Coded Allergies: Sulfa Antibiotics (Verified Allergy, Intermediate, Rash and feet swelling , 10/06/16) Citalopram (Verified Allergy, Mild, RASH AND FEET SWELLING, 10/06/16) Carisoprodol (Verified Allergy, Unknown, DIZZINESS, 10/06/16) Topiramate (Unverified Allergy, Unknown, DRY EYES EXCERBATED, 10/06/16) Hydromorphone (Verified Adverse Reaction, Mild, HALLUCINATIONS , 10/06/16) Sumatriptan (Verified Adverse Reaction, Mild, UNDER SKIN SENSATION CREEPING, 10/06/16) Meperidine (Verified Adverse Reaction, Unknown, VOMITING, 10/06/16) Physical Exam Vital Signs Date Time Temp Pulse Resp B/P (MAP) Pulse Ox O2 Delivery O2 Flow Rate FiO2 10/06/16 23:15 78 20 138/70 98 10/06/16 21:17 74 20 144/74 95 Room Air 10/06/16 20:50 79 10/06/16 20:23 74 20 146/71 95 Room Air 10/06/16 19:20 36.8 86 20 145/87 94 Room Air Physical Exam GENERAL: Awake, alert, well-appearing, in no distress HENT: Normocephalic, atraumatic. Oropharynx unremarkable. EYES: Normal conjunctiva. Sclera non-icteric. NECK: Supple. No nuchal rigidity. FROM. No JVD. RESPIRATORY: Clear to auscultation. CARDIAC: Regular rate, normal rhythm. Extremities warm and well perfused. Pulses equal. ABDOMEN: Soft, non-distended. RUQ tenderness to palpation. No rebound or guarding. No masses. KENY drain in the RUQ, surgical incisions were clean and intact. RECTAL: Deferred. MUSCULOSKELETAL: Chest examination reveals no tenderness. The back is symmetrical on inspection without obvious abnormality. There is no CVA tenderness to palpation. No joint edema. LOWER EXTREMITIES: Calves are equal size bilaterally and non-tender. No edema. No discoloration. NEURO: Normal sensorium. No sensory or motor deficits noted. SKIN: No rash or jaundice noted. Medical Decision & Procedures ER Provider Diagnostic Interpretation: X-ray: Per my interpretation, radiologist review. PA CHEST RADIOGRAPH AND UPRIGHT AND SUPINE AP RADIOGRAPHS OF THE ABDOMEN CLINICAL HISTORY: Nausea and vomiting. Status post cholecystectomy this morning. COMPARISON STUDY: Chest radiograph June 23, 2016 and right upper quadrant ultrasound June 23, 2016. FINDINGS: There is moderate elevation of the right hemidiaphragm. There is no evidence of pulmonary edema. There is no pneumothorax. Right lower lung airspace opacity is present. Lucency under the right hemidiaphragm represents pneumoperitoneum. A right upper quadrant surgical drain is in place. There are cholecystectomy clips. A right hip arthroplasty is noted. There is no evidence of a bowel obstruction. There is a moderate amount of stool within the colon. Hyperdense material within the right lower quadrant likely reflects contrast from intraoperative cholangiogram. IMPRESSION: 1. No evidence for a bowel obstruction. Moderate amount of stool within the colon. 2. Small amount of pneumoperitoneum, an expected finding in early postoperative setting. Right upper quadrant surgical drain in place. Hyperdense material within the right lower quadrant likely reflects contrast from intraoperative cholangiogram. It's not clear whether this is intraluminal or extraluminal. 3. Right lower lung airspace opacity which favors atelectasis. Pneumonia could appear similar but is considered less likely. Electronically signed by: Erickson Argueta M.D. 10/06/2016 10:14 PM Dictated Date/Time: 10/06/2016 10:09 PM Laboratory Results 10/06/16 19:35 Red Blood Count 4.62, Mean Corpuscular Volume 84.6, Mean Corpuscular Hemoglobin 29.0, Mean Corpuscular Hemoglobin Concent 34.3, Mean Platelet Volume 9.3, Neutrophils (%) (Auto) 89.5, Lymphocytes (%) (Auto) 7.9, Monocytes (%) (Auto) 2.5, Eosinophils (%) (Auto) 0.0, Basophils (%) (Auto) 0.0, Neutrophils # (Auto) 6.00, Lymphocytes # (Auto) 0.53, Monocytes # (Auto) 0.17, Eosinophils # (Auto) 0.00, Basophils # (Auto) 0.00 10/06/16 19:35 Test 10/06/16 19:35 10/06/16 23:20 White Blood Count 6.71 K/uL (4.8-10.8) Red Blood Count 4.62 M/uL (4.2-5.4) Hemoglobin 13.4 g/dL (12.0-16.0) Hematocrit 39.1 % (37-47) Mean Corpuscular Volume 84.6 fL (80-100) Mean Corpuscular Hemoglobin 29.0 pg (25-34) Mean Corpuscular Hemoglobin Concent 34.3 g/dl (32-36) Platelet Count 336 K/uL (130-400) Mean Platelet Volume 9.3 fL (7.4-10.4) Neutrophils (%) (Auto) 89.5 % Lymphocytes (%) (Auto) 7.9 % Monocytes (%) (Auto) 2.5 % Eosinophils (%) (Auto) 0.0 % Basophils (%) (Auto) 0.0 % Neutrophils # (Auto) 6.00 K/uL (1.4-6.5) Lymphocytes # (Auto) 0.53 K/uL (1.2-3.4) Monocytes # (Auto) 0.17 K/uL (0.11-0.59) Eosinophils # (Auto) 0.00 K/uL (0-0.5) Basophils # (Auto) 0.00 K/uL (0-0.2) RDW Standard Deviation 41.9 fL (36.4-46.3) RDW Coefficient of Variation 13.6 % (11.5-14.5) Immature Granulocyte % (Auto) 0.1 % Immature Granulocyte # (Auto) 0.01 K/uL (0.00-0.02) Anion Gap 7.0 mmol/L (3-11) Est Creatinine Clear Calc Drug Dose 62.2 ml/min Estimated GFR () 76.7 Estimated GFR (Non- 66.2 BUN/Creatinine Ratio 13.3 (10-20) Calcium Level 9.5 mg/dl (8.5-10.1) Total Bilirubin 0.3 mg/dl (0.2-1) Direct Bilirubin 0.1 mg/dl (0-0.2) Aspartate Amino Transf (AST/SGOT) 37 U/L (15-37) Alanine Aminotransferase (ALT/SGPT) 51 U/L (12-78) Alkaline Phosphatase 83 U/L (45-117) Total Protein 7.2 gm/dl (6.4-8.2) Albumin 4.0 gm/dl (3.4-5.0) Lipase 191 U/L (73-393) Urine Color YELLOW Urine Appearance CLEAR (CLEAR) Urine pH 7.5 (4.5-7.5) Urine Specific [place] 1.016 (1.000-1.030) Urine Protein NEG (NEG) Urine Glucose (UA) NEG (NEG) Urine Ketones TRACE (NEG) Urine Occult Blood NEG (NEG) Urine Nitrite NEG (NEG) Urine Bilirubin NEG (NEG) Urine Urobilinogen NEG (NEG) Urine Leukocyte Esterase NEG (NEG) Laboratory results reviewed by me Medications Administered Medications (Trade) Dose Ordered Sig/Natalya Route Start Time Stop Time Status Last Admin Dose Admin Sodium Chloride 1,000 ml @ 125 mls/hr Q8H STAT IV 10/06/16 19:47 10/07/16 00:23 DC 10/06/16 19:47 125 MLS/HR Sodium Chloride 1,000 ml @ 999 mls/hr Q1H1M STAT IV 10/06/16 19:47 10/06/16 20:51 DC 10/06/16 19:47 999 MLS/HR Morphine Sulfate (MoRPHine SULFATE INJ) 4 mg Q15M PRN IV 10/06/16 20:00 10/07/16 00:23 DC 10/06/16 23:13 4 MG Promethazine HCl 25 mg/Sodium Chloride 51 ml @ 204 mls/hr NOW STAT IV 10/06/16 20:14 10/06/16 20:28 DC 10/06/16 20:14 204 MLS/HR Acetaminophen/ Hydrocodone Bitart ([place] 5/325mg Home Pack) 1 homepack UD ONCE PO 10/06/16 22:45 10/06/16 22:46 DC 10/06/16 22:45 1 HOMEPACK Promethazine HCl (Phenergan 25MG Home Pack) 1 homepack UD ONCE PO 10/06/16 22:45 10/06/16 22:46 DC 10/06/16 22:45 1 HOMEPACK Ondansetron HCl (Zofran 8mg Iv) 8 mg NOW STAT IV 10/06/16 23:05 10/06/16 23:06 DC 10/06/16 23:05 8 MG Sodium Chloride 500 ml @ 999 mls/hr Q31M STAT IV 10/06/16 23:05 10/06/16 23:35 DC 10/06/16 23:05 999 MLS/HR ECG Indication: vomiting Rate (beats per minute): 78 Rhythm: normal sinus Findings: no acute ischemic change, no ectopy ED Course 1946: Ordered Sodium Chloride 1000 ml @ 999 mls/hr IV, Sodium Chloride 1000 ml @ 125 mls/hr IV 1950: The patient was evaluated in room C11B. A complete history and physical exam was performed. 1999: Ordered Morphine Sulfate 4mg IV, Dilaudid Inj 1mg IV 2013: Ordered Promethazine HCl 25mg/Sodium Chloride 51ml @ 204mls/hr IV 2028: I reevaluated the patient, and she is felling better. 2219: I discussed the patient's case with Dr. Goldberg, General Surgery. He agreed to treat her systematically and continue post-operative treatment. 2233: I reevaluated the patient, and she has asked for more pain medication. 5: Ordered Promethazine HCl 1 homepack PO, Hydrocodone Bitart/Acetaminophen 1 homepack PO 2304: Ordered Sodium Chloride 500 ml @ 999 mls/hr IV, Zofran 8mg IV 2323: I reevaluated the patient. Discussed results and discharge instructions: she verbalized understanding and agreement. The patient is ready for discharge. Medical Decision Medication Reconciliation: I attest that I have personally reviewed the patient' s current medication list Blood pressure screening: Patient was found to have an elevated blood pressure and was referred to their primary doctor for recheck and further treatment. Triage Nursing notes reviewed. The patient's presentation and history were concerning for postoperative nausea and vomiting. The patient was evaluated. She had surgery today. She had nausea and vomiting in the PACU. The patient had multiple episodes at home today. She came in the emergency department for further evaluation. She has a mild tenderness which was not unexpected given her postoperative state. She was nauseated. She was hydrated. She was given morphine and Phenergan. She did require a second dose of morphine and felt significantly better with this. I did give her Zofran prior to discharge. I did consult with her surgeon , Dr. Fabiano Goldberg. He agreed with the treatment and recommended conservative management. The patient's blood work and imaging was unremarkable. The patient will follow-up in the office. I will give her Phenergan home pack and a [place] home pack to use as the Percocet may have made her slightly nauseated. She will have the option to use this as well as her other medication. I did discuss the patient' s blood pressure with her as well. She'll follow-up with an outpatient. If she worsens in any way she will return. By the evaluation outlined above other emergent etiologies such as those listed in the differential, as well as others, were deemed relatively unlikely. The patient was educated about the findings as listed above. All questions were answered and the patient was pleased with the treatment. Return instructions were outlined and the patient was discharged in stable condition. The patient was referred to her surgeon and PCP for follow-up for a recheck of the current condition. Consults Time Called: 2213 Consulting Physician: Dr. Goldberg, General Surgery Returned Call: [phone] I discussed the patient's case with Dr. Goldberg, General Surgery. He agreed to treat her systematically and continue post-operative treatment. Impression Primary Impression: Post-operative nausea and vomiting Scribe Attestation The scribe's documentation has been prepared under my direction and personally reviewed by me in its entirety. I confirm that the note above accurately reflects all work, treatment, procedures, and medical decision making performed by me. Departure Information Dispostion Home / Self-Care Referrals Ty Tate M.D. (PCP) Forms HOME CARE DOCUMENTATION FORM, IMPORTANT VISIT INFORMATION Patient Instructions My [facility] Additional Instructions DO NOT drive, drink alcohol, operate machinery, or perform dangerous activities today. You were given medications in the ER that can affect your ability to safely function or operate a vehicle. Hydrocodone/acetaminophen 5/325mg: Take 1-2 pills every 6 hours as needed for pain. Avoid additional Acetaminophen/Tylenol, alcohol, operating machinery or dangerous equipment, working on ladders or roofs, DRIVING, or situations where being under the influence may be dangerous. It is recommended to use a stool softener such as Colace, 100mg twice daily while taking this medication to avoid constipation. Phenergan(promethazine) tablets 25mg: Take one every six hours as needed for nausea. Avoid alcohol, operating machinery or dangerous equipment, working on ladders or roofs, DRIVING, or situations where being under the influence may be dangerous. Rest and drink plenty of fluids as tolerated. Slow sips of water or sports drinks are recommended instead of large amounts all at once. Continue current medications. Once your stomach is settled start with a clear liquid diet (jello, soup broth, etc.) and then advance as tolerated. You should avoid full, heavy meals for about 24 hrs from the time your symptoms resolved. Return to the ER immediately for worsening or persistent abdominal pain, vomiting, fevers, chest pains, difficulty breathing, black or bloody stools, worsening of your condition, or as needed. Follow up with your surgeon as directed for a recheck of your current condition.
== END 2016-10-06 23:53 | disposition home or self-care (01) ==
LOC: C.EDB 19:15 → C.EDC 23:53
DX: K91.89 Other postprocedural complications and disorders of digestive system (principal); M19.90 Unspecified osteoarthritis, unspecified site

== ENCOUNTER → 2016-10-17 | Outpatient (CLI) | payer BC ==
[~2016-10-17] MED LIST changes: +ONDA4TAB46 PO
--- NOTE | 2016-10-17 11:13 | Discharge Instructions ---
Discharge Instructions Procedure Procedure Date: Oct 17, 2016. Reason for visit: R Thyroid Nodule,*Dr Argueta To Do, Us Done 09/23. Discharge Discharge Date: Oct 17, 2016. Discharge Diagnosis: s/p right lobe thyroid nodule fna Instructions Activity Recommendations: No limitations Return to School/Work: no limitations Recommended Home Diet: No Limitations Provider Instructions: ACTIVITY RECOMMENDATIONS: * Rest today. * Resume regular activity in one day. MEDICATIONS: * May take Tylenol or Ibuprofen as needed for pain. DIET: * Resume previous diet. SPECIAL CARE INSTRUCTIONS: Call your doctor if: * Temperature above 101 degrees F. * Pain not relieved by pain medicine ordered. * Increased drainage or redness from incision. * Notify your doctor with any questions or concerns. Call your doctor or go to the nearest Emergency Department if you experience: * Increased chest pain or shortness of breath. FOLLOW UP VISIT: Follow-up with Referring Physician as scheduled. Allergies Coded Allergies: Sulfa Antibiotics (Verified Allergy, Intermediate, Rash and feet swelling , 10/06/16) Citalopram (Verified Allergy, Mild, RASH AND FEET SWELLING, 10/06/16) Carisoprodol (Verified Allergy, Unknown, DIZZINESS, 10/06/16) Topiramate (Unverified Allergy, Unknown, DRY EYES EXCERBATED, 10/06/16) Hydromorphone (Verified Adverse Reaction, Mild, HALLUCINATIONS , 10/06/16) Sumatriptan (Verified Adverse Reaction, Mild, UNDER SKIN SENSATION CREEPING, 10/06/16) Meperidine (Verified Adverse Reaction, Unknown, VOMITING, 10/06/16) [place] Recommendations: Call your doctor if: * Temperature above 101 degrees * Pain not relieved by pain medicine ordered * There is increased drainage or redness from any incision * You have any unanswered questions or concerns. Your Doctors Instructions noted above were prepared by provider Erickson Argueta. Patient Signature Section: Patient Instructions Signature Page Susanne Barbour Patient (or Guardian) Signature/Date: I have read and understand the instructions given to me by my caregivers. Caregiver/RN/Doctor Signature/Date: The above-named patient and/or guardian has received patient instructions on this date. + Original Patient Signature Page (only) stays with chart. Please make copy for patient.
--- NOTE | 2016-10-17 11:31 | DIAGNOSTIC IMAGING REPORT ---
ULTRASOUND GUIDED FINE NEEDLE ASPIRATION OF RIGHT LOBE THYROID NODULE CLINICAL HISTORY: Right lobe thyroid nodule. COMPARISON STUDY: Thyroid ultrasound September 23, 2016. PROCEDURE: The procedure, risks and benefits were discussed with the patient and informed written consent was obtained. The procedure was performed by Dr. Argueta following a timeout. Skin of the right neck was prepped and draped in sterile fashion and local anesthesia was achieved with 1% lidocaine. Under direct ultrasound guidance, 4 25-gauge fine needle aspirations of the 2.4 cm right lobe thyroid nodule were performed. The samples were deemed preliminarily adequate by pathology. The patient tolerated the procedure well and no immediate complications were evident. IMPRESSION: Ultrasound guided fine needle aspiration of right lobe thyroid nodule. Electronically signed by: Erickson Argueta M.D. 10/17/2016 11:30 AM Dictated Date/Time: 10/17/2016 11:28 AM
== END | disposition home or self-care (01) ==
LOC: C.ULTR 09:36
DX: E04.1 Nontoxic single thyroid nodule (principal)

== ENCOUNTER → 2017-03-20 | Outpatient (CLI) | payer BC ==
--- NOTE | 2017-03-20 08:06 | DIAGNOSTIC IMAGING REPORT ---
MRCP CLINICAL HISTORY: Biliary colic status post cholecystectomy COMPARISON STUDY: Biliary ultrasound dated 06/23/2016 FINDINGS: The patient is status post a prior cholecystectomy. The common bile duct measures 7 mm. No ductal filling defects are visualized. The pancreatic duct is of normal caliber. There is no intrahepatic biliary ductal dilatation. No hepatic or splenic masses are visualized. IMPRESSION: 1. Surgically absent gallbladder. 2. 7 mm common bile duct. No filling defects identified 3. Normal pancreatic duct Electronically signed by: Teddy Castellon M.D. 03/20/2017 8:04 AM Dictated Date/Time: 03/20/2017 8:00 AM
== END | disposition home or self-care (01) ==
LOC: C.MRIBC 06:51
PROVIDERS: ATTEND Family Medicine
DX: K80.51 Calculus of bile duct without cholangitis or cholecystitis with obstruction (principal); Z90.49 Acquired absence of other specified parts of digestive tract

== ENCOUNTER → 2017-05-15 | Outpatient (CLI) | payer OTHER ==
[~2017-05-15] MED LIST changes: -OXYC-57 PO
--- NOTE | 2017-05-16 13:29 | MAMMOGRAPHY REPORT ---
BILATERAL DIGITAL SCREENING MAMMOGRAM TOMOSYNTHESIS WITH CAD: 05/15/2017 CLINICAL HISTORY: Routine screening. TECHNIQUE: Breast tomosynthesis in addition to standard 2D mammography was performed. Current study was also evaluated with a Computer Aided Detection (CAD) system. COMPARISON: Comparison is made to exams dated: 05/12/2016 mammogram, 05/11/2015 mammogram, 05/09/2014 ayanna mogram, 05/08/2013 mammogram, 05/07/2012 mammogram, and 05/04/2011 mammogram - [facility] ter. BREAST COMPOSITION: The tissue of both breasts is heterogeneously dense, which may obscure small mas ses. FINDINGS: The parenchymal pattern is unchanged. No developing mass, architectural distortion or clus ter of suspicious microcalcifications is seen in either breast. IMPRESSION: ACR BI-RADS CATEGORY 2: BENIGN There is no mammographic evidence of malignancy. A 1 year screening mammogram is recommended. The pa tient will receive written notification of the results. Approximately 10% of breast cancers are not detected with mammography. A negative mammographic report should not delay biopsy if a clinically suggestive mass is present. Viola Chaudhari M.D. ay/:05/15/2017 16:17:53 [place]: Viviane JOHNSON(R)(M), [facility] letter sent: Normal 1/2 BI-RADS Code: ACR BI-RADS Category 2: Benign
== END | disposition home or self-care (01) ==
LOC: C.MAMM 14:29
PROVIDERS: ATTEND Obstetrics & Gynecology
DX: Z12.31 Encounter for screening mammogram for malignant neoplasm of breast (principal)

== ENCOUNTER → 2017-05-24 | Outpatient (CLI) | payer OTHER ==
--- NOTE | 2017-05-24 11:03 | DIAGNOSTIC IMAGING REPORT ---
GI SERIES W/AIR ROUTINE CLINICAL HISTORY: 66 years-old Female with GERD, EPIGASTRIC/CHEST PAIN, HIATAL HERNIA. Gastroesophageal reflux with hiatal hernia TECHNIQUE: A standard air contrast upper GI series was performed following administration of barium and effervescent crystals. Multiple spot fluoroscopic images were obtained and provided for review. COMPARISON STUDY: CTA 06/23/2016 FLUOROSCOPY TIME: 3 minutes. FINDINGS: The patient swallowed barium without difficulty. No aspiration was definitively visualized. The esophagus distended normally with barium and effervescent crystals. No strictures, mucosal ulcerations, or intraluminal mass lesions were identified involving the esophagus. There was no significant gastroesophageal reflux. Barium was seen to flow freely through the gastroesophageal junction. No active reflux was demonstrated with Valsalva maneuver. Evaluation of the stomach demonstrates no gastric mucosal irregularity or filling defect. Small sliding-type hiatal hernia. The duodenal bulb and sweep appear unremarkable. IMPRESSION: Small sliding-type hiatal hernia without significant gastroesophageal reflux identified. The above report was generated using voice recognition software. It may contain grammatical, syntax or spelling errors. Electronically signed by: Kyrie Robledo M.D. 05/24/2017 11:02 AM Dictated Date/Time: 05/24/2017 10:59 AM
== END | disposition home or self-care (01) ==
LOC: C.RAD 09:53
PROVIDERS: ATTEND Internal Medicine Gastroenterology
DX: R10.13 Epigastric pain (principal); K44.9 Diaphragmatic hernia without obstruction or gangrene

== ENCOUNTER 2017-08-17 04:42 | Emergency (ER) | payer OTHER ==
[~2017-08-17] VITALS: Ht 172.7 cm; Wt 69.5 kg
[~2017-08-17 04:42] MED LIST changes: +DXY50 PO
[2017-08-17] MEDS ORDERED: ONDANSETRON INJ 2 MG/ML 2 ML VIAL IV STA ×2 (05:00→06:49)
[2017-08-17] MEDS ORDERED: SODIUM CHLORIDE 0.9% 1000ML 1,000 ML IV STA (05:00)
[2017-08-17] MEDS ORDERED: MoRPHine SULFATE 10 MG/ML CARP/VIAL IV STA ×2 (05:00→05:35)
--- NOTE | 2017-08-17 05:00 | EMERGENCY ROOM VISIT NOTE ---
History Report prepared by Fritz: Emerald Palomares Under the Supervision of: Dr. Vern Kidd M.D. First contact with patient: 04:50 Chief Complaint: CHEST PAIN Stated Complaint: GALLBLADDER ATTACK, CHEST/STOMACH PAIN History of Present Illness The patient is a 66 year old female who presents to the Emergency Room with complaints of persistent epigastric pain that started 1 hour ago. The patient rates her pain a 10/10 in severity. The patient reports the pain is radiating to her back and woke her up from her sleep. She states she had similar symptoms 6 months ago. The patient had her gallbladder removed in September 2016. She reports she has a history of reflux but states this does not feel like heart burn. The patient took 2 Percocet CHIEF PHYSICAL THERAPIST but they did not help the pain. She states they normally help her pain. The patient denies a history of pancreas issues. She reports she just got back from a cruise where she was not eating or drinking normally. The patient's states her first episode started around the same time they started on [employer] to lose weight. Source of History: patient Onset: 1 hour ago Position: other (epigastrium) Symptom Intensity: 10/10 Timing: other (persistent) Associated Symptoms: + back pain Review of Systems See HPI for pertinent positives & negatives. A total of 10 systems reviewed and were otherwise negative. Past Medical & Surgical Medical Problems: (1) Deviated nasal septum (2) Low back pain (3) Osteoarthritis (4) Right Hip DJD Family History Patient reports no known family medical history. Social History Smoking Status: Former Smoker Alcohol Use: occasionally Drug Use: none Marital Status: Housing Status: lives with significant other Occupation Status: unemployed Current/Historical Medications Scheduled Amoxicillin (Amoxil), 2,000 MG PO UD Bupropion HCl (Bupropion HCl Xl), 300 MG PO QAM Bupropion Hcl (Bupropion Hcl Xl), 150 MG PO QAM Doxycycline Monohydrate (Monodox), 50 MG PO DAILY Esomeprazole Magnesium (Nexium), 40 MG PO QAM Ibuprofen Tab (Advil), 600-800 MG PO PRN Lamotrigine (Lamictal), 150 MG PO QAM Mometasone Furoate (Elocon), 1 APPLN TOP BID Multiple Vitamins W/ Minerals (Alive Womens 50+), 2 TAB PO DAILY [xidia], 1 DROP OP BID Scheduled PRN Llrjzfb-Vaevfgyanusda-Auqnapdv (Excedrin Migraine), 2 TAB PO PRN PRN for Migraine Furosemide (Lasix), 40 MG PO DAILY PRN for MD ORDER Hydrocodone/Acetaminophen 5MG/325MG ([place] 5MG/325MG), 1 TABLET PO DIRECTED PRN for Pain Lorazepam (Ativan), 0.5 MG PO DIRECTED PRN for Anxiety Potassium Chloride (Klor-Con Ext Rel), 8 MEQ PO DAILY PRN for IF TAKING LASIX Allergies Coded Allergies: Sulfa Antibiotics (Verified Allergy, Intermediate, Rash and feet swelling , 08/17/17) Citalopram (Verified Allergy, Mild, RASH AND FEET SWELLING, 08/17/17) Carisoprodol (Verified Allergy, Unknown, DIZZINESS, 08/17/17) Topiramate (Unverified Allergy, Unknown, DRY EYES EXCERBATED, 08/17/17) Hydromorphone (Verified Adverse Reaction, Mild, HALLUCINATIONS , 08/17/17) Sumatriptan (Verified Adverse Reaction, Mild, UNDER SKIN SENSATION CREEPING, 08/17/17) Meperidine (Verified Adverse Reaction, Unknown, VOMITING, 08/17/17) Physical Exam Vital Signs Date Time Temp Pulse Resp B/P (MAP) Pulse Ox O2 Delivery O2 Flow Rate FiO2 08/17/17 05:48 167/89 08/17/17 05:42 70 12 91 Room Air 08/17/17 05:13 Room Air 08/17/17 05:12 72 14 98 Room Air 08/17/17 04:59 73 08/17/17 04:47 36.3 72 24 182/87 98 Room Air Physical Exam GENERAL: Patient is uncomfortable appearing and in moderate distress. EYES: No scleral icterus, unremarkable pupils. ENT: Mucous membranes moist, no nasal congestion. NECK: No masses appreciated, no meningismus, trachea is midline. RESPIRATORY: No dyspnea. Clear to auscultation and equal bilaterally. No wheeze , no rhonchi. CARDIOVASCULAR: Regular rate and rhythm. No murmurs, rubs, gallops appreciated. GASTROINTESTINAL: Abdomen soft, vague epigastric tenderness to palpation, no peritonitis. Bowel sounds positive. No masses appreciated. BACK: No midline tenderness, no CVA tenderness EXTREMITIES: Normal motion all extremities, no cyanosis, no edema. NEUROLOGIC: Alert and oriented, no acute motor or sensory deficits, no focal weakness, cranial nerves grossly intact. SKIN: No rash, no jaundice, no diaphoresis. Medical Decision & Procedures ER Provider Diagnostic Interpretation: Stat Rad Radiology results and stated below per my review and radiologist interpretation: CT ABDOMEN & PELVIS With Contrast: Status post cholecystectomy. The common bile duct is larger in diameter measuring 9 mm at the head of the pancreas from 7.5 mm on previous MRCP study . No significant intrahepatic biliary dilatation identified. Dilatation of the common bile duct may be due to normal capacious adaptation following cholecystectomy. However, if there is laboratory findings concerning for retained choledocholithiasis, repeat MRCP should be considered. No inflammatory change or fluid identified. No bowel obstruction or free fluid. No pneumoperitoneum. Diverticulosis distal colon. No CT findings definitive for diverticulitis. Evaluation of the pelvis is slightly compromised by right hip arthroplasty. The pancreas, spleen, adrenals and kidneys are otherwise unremarkable. Radiologist: Babar Bass MD Laboratory Results 08/17/17 05:01 Red Blood Count 4.58, Mean Corpuscular Volume 85.2, Mean Corpuscular Hemoglobin 29.3, Mean Corpuscular Hemoglobin Concent 34.4, Mean Platelet Volume 8.6, Neutrophils (%) (Auto) 46.4, Lymphocytes (%) (Auto) 40.9, Monocytes (%) (Auto) 6.9, Eosinophils (%) (Auto) 5.1, Basophils (%) (Auto) 0.5, Neutrophils # (Auto) 2.84, Lymphocytes # (Auto) 2.50, Monocytes # (Auto) 0.42, Eosinophils # (Auto) 0.31, Basophils # (Auto) 0.03 08/17/17 05:01 Test 08/17/17 05:01 White Blood Count 6.11 K/uL (4.8-10.8) Red Blood Count 4.58 M/uL (4.2-5.4) Hemoglobin 13.4 g/dL (12.0-16.0) Hematocrit 39.0 % (37-47) Mean Corpuscular Volume 85.2 fL (80-100) Mean Corpuscular Hemoglobin 29.3 pg (25-34) Mean Corpuscular Hemoglobin Concent 34.4 g/dl (32-36) Platelet Count 335 K/uL (130-400) Mean Platelet Volume 8.6 fL (7.4-10.4) Neutrophils (%) (Auto) 46.4 % Lymphocytes (%) (Auto) 40.9 % Monocytes (%) (Auto) 6.9 % Eosinophils (%) (Auto) 5.1 % Basophils (%) (Auto) 0.5 % Neutrophils # (Auto) 2.84 K/uL (1.4-6.5) Lymphocytes # (Auto) 2.50 K/uL (1.2-3.4) Monocytes # (Auto) 0.42 K/uL (0.11-0.59) Eosinophils # (Auto) 0.31 K/uL (0-0.5) Basophils # (Auto) 0.03 K/uL (0-0.2) RDW Standard Deviation 41.7 fL (36.4-46.3) RDW Coefficient of Variation 13.5 % (11.5-14.5) Immature Granulocyte % (Auto) 0.2 % Immature Granulocyte # (Auto) 0.01 K/uL (0.00-0.02) Anion Gap 5.0 mmol/L (3-11) Est Creatinine Clear Calc Drug Dose 55.5 ml/min Estimated GFR () 66.8 Estimated GFR (Non- 57.7 BUN/Creatinine Ratio 17.1 (10-20) Calcium Level 8.6 mg/dl (8.5-10.1) Total Bilirubin 0.3 mg/dl (0.2-1) Direct Bilirubin < 0.1 mg/dl (0-0.2) Aspartate Amino Transf (AST/SGOT) 21 U/L (15-37) Alanine Aminotransferase (ALT/SGPT) 29 U/L (12-78) Alkaline Phosphatase 82 U/L (45-117) Troponin I < 0.015 ng/ml (0-0.045) C-Reactive Protein < 0.29 mg/dl (0-0.29) Total Protein 7.4 gm/dl (6.4-8.2) Albumin 3.8 gm/dl (3.4-5.0) Lipase 161 U/L (73-393) Laboratory results as reviewed by me. Medications Administered Medications (Trade) Dose Ordered Sig/Natalya Route Start Time Stop Time Status Last Admin Dose Admin Morphine Sulfate (MoRPHine SULFATE INJ) 10 mg NOW STAT IV 08/17/17 05:00 08/17/17 05:01 DC 08/17/17 05:10 10 MG Ondansetron HCl (Zofran Inj) 4 mg NOW STAT IV 08/17/17 05:00 08/17/17 05:01 DC 08/17/17 05:09 4 MG Sodium Chloride 1,000 ml @ 999 mls/hr Q1H1M STAT IV 08/17/17 05:00 08/17/17 06:00 DC 08/17/17 05:00 999 MLS/HR Morphine Sulfate (MoRPHine SULFATE INJ) 10 mg NOW STAT IV 08/17/17 05:35 08/17/17 05:36 DC 08/17/17 05:49 10 MG ECG Per My Interpretation Indication: chest pain Rate (beats per minute): 72 Rhythm: sinus rhythm Findings: PAC, no acute ischemic change, other (QTC 427) ED Course 0450: The patient was evaluated in room B2. A complete history and physical exam was performed. 0535: I reevaluated the patient and she states there is minimal improvement with pain. 0540: PDMP on patient reveals narcotic prescription on August 01. Prior to that , prescriptions for narcotic cough syrup and anti-anxiety medications. 0547: I discussed lab results with patient. She agrees to CT scans. 0705: I consulted the hospitalist about the patient's case. Medical Decision Differential: Bile duct disfunction, Hepatic Disfunction, Gastritis/PUD, Pancreatitis, ACS, Aortic Pathology, amongst other pathologies entertained. 66 yr old female arrives for for evaluation of severe stabbing epigastric pain radiating to back. Associated with nausea. This has been ongoing problem for quite some time with episodes every few months. Extensive evaluations and even Cholecystectomy without resolution nor cause found. Seen by PCP, GI, and even went to [facility]'s recently without solution. She makes clear on arrival that she needs large doses of narcotics to get her pain under control (states this is due to be red headed). She continues to complain of minimally improving pain radiating to back despite multiple large doses Morphine. Labs are all completely benign. CT done given continued pain with mild increase in CBD of uncertain etiology. Given intractable nature of pain will consult hospitalists for further monitoring/treatment. Medication Reconcilliation Current Medication List: was personally reviewed by me Blood Pressure Screening Patient's blood pressure: Elevated blood pressure Blood pressure disposition: Elevated BP felt to be situational Impression Primary Impression: Epigastric abdominal pain Additional Impression: Common bile duct dilatation Scribe Attestation The scribe's documentation has been prepared under my direction and personally reviewed by me in its entirety. I confirm that the note above accurately reflects all work, treatment, procedures, and medical decision making performed by me. Departure Information Dispostion Admitted as an inpatient Referrals Ty Tate M.D. (PCP) Patient Instructions [facility] Problem Qualifiers
[2017-08-17 05:12] LABS: BASO % 0.5 %; BASO ABS # 0.03 K/uL (0-0.2); EOS % 5.1 %; EOS ABS # 0.31 K/uL (0-0.5); HEMOGLOBIN 13.4 g/dL (12.0-16.0); IG# 0.01 K/uL (0.00-0.02); LYMPH % 40.9 %; MEAN CELL VOLUME 85.2 fL (80-100); MEAN CORPUSCULAR HEMOGLOBIN 29.3 pg (25-34); MEAN CORPUSCULAR HGB CONC 34.4 g/dl (32-36); MEAN PLATELET VOLUME 8.6 fL (7.4-10.4); MONO % 6.9 %; MONO ABS # 0.42 K/uL (0.11-0.59); NEUT % 46.4 %; NEUT ABS # 2.84 K/uL (1.4-6.5); PLATELET COUNT 335 K/uL (130-400); RED CELL DISTRIBUTION WIDTH CV 13.5 % (11.5-14.5); RED CELL DISTRIBUTION WIDTH SD 41.7 fL (36.4-46.3); WHITE BLOOD COUNT 6.11 K/uL (4.8-10.8)
[2017-08-17] MEDS ORDERED: DOXY100C76 PO (05:23)
[2017-08-17] MEDS ORDERED: HYDR-5688 PO (05:24)
[2017-08-17] MEDS ORDERED: MOME0.1O TOP (05:25)
[2017-08-17] MEDS ORDERED: [UNRECOGNIZED DRUG - OTHER] OP (05:27)
[2017-08-17] MEDS ORDERED: LORA-741 PO ×2 (05:28→21:30)
[2017-08-17 05:30] LABS: ALBUMIN 3.8 gm/dl (3.4-5.0); ALT/SGPT 29 U/L (12-78); AST/SGOT 21 U/L (15-37); BLOOD UREA NITROGEN 17 mg/dl (7-18); CALCIUM 8.6 mg/dl (8.5-10.1); CARBON DIOXIDE 29 mmol/L (21-32); CREATININE 1.02 mg/dl (0.60-1.20); GLUCOSE 96 mg/dl (70-99); LIPASE 161 U/L (73-393); POTASSIUM 3.8 mmol/L (3.5-5.1); SODIUM 136 mmol/L (136-145)
[2017-08-17 05:35] LABS: ALKALINE PHOSPHATASE 82 U/L (45-117); TOTAL PROTEIN 7.4 gm/dl (6.4-8.2)
[2017-08-17] MEDS ORDERED: OPTIRAY 320 IV PRN (06:30)
[2017-08-17] MEDS ORDERED: DiphenhydrAMINE HCL 50 MG/ML VIAL IV STA (06:49)
--- NOTE | 2017-08-17 06:55 | DIAGNOSTIC IMAGING REPORT ---
CT ABD/PELVIS IV CONTRAST ONLY CLINICAL HISTORY: Severe Epigastric pain COMPARISON STUDY: None. TECHNIQUE: Following the IV administration of 92 mL of Optiray-320, CT scan of the abdomen and pelvis was performed from the lung bases to the proximal femurs. Images are reviewed in the axial, sagittal, and coronal planes. IV contrast was administered without complication. A dose lowering technique was utilized adhering to the principles of ALARA. CT DOSE: 339.72 mGy.cm FINDINGS: Lower chest: There are mild dependent atelectatic changes Liver: No focal hepatic masses are visualized. There is minimal central ductal prominence. Gallbladder: Surgically absent. Common bile duct measures 1 cm. Spleen: Normal in size and attenuation. Pancreas: Unremarkable. Adrenal glands: Unremarkable. Kidneys: There is symmetric renal cortical enhancement. The kidneys are normal in size without hydronephrosis. Bowel: There are no transition zones indicate bowel obstruction. The appendix appears normal. There is colonic diverticulosis. There are no acute peridiverticular inflammatory changes. Peritoneum: There is no intraperitoneal free air or abdominal ascites. Vasculature: The abdominal aorta is normal in course and caliber. Adenopathy: None. Pelvic viscera: The bladder, and pelvic viscera are unremarkable. Skeletal structures: There are postsurgical changes of a total right hip arthroplasty. IMPRESSION: 1. No evidence of bowel obstruction. No evidence of free air 2. Normal appendix. Diverticulosis. No evidence of acute diverticulitis 3. Surgically absent gallbladder. Mild ductal prominence, the common bile duct measures 10 mm. While nonspecific, this potentially is related to the patient's prior cholecystectomy. An MRCP performed March 2017 revealed no common bile duct calculi. The common bile duct does however appear larger than on that prior study Electronically signed by: Teddy Castellon M.D. 08/17/2017 6:53 AM Dictated Date/Time: 08/17/2017 6:25 AM
[2017-08-17] MEDS ORDERED: MoRPHine SULFATE 10 MG/ML CARP/VIAL IV PRN (07:15)
[2017-08-17 07:58] VITALS: O2SAT 91; Ht 172.7 cm; Wt 69.5 kg
[2017-08-17] MEDS ORDERED: NXM/40 PO ×2 (10:16)
[2017-08-17] MEDS ORDERED: FLX10 PO ×2 (10:16)
[2017-08-17] MEDS ORDERED: CRFL PO ×3 (10:16→21:30)
--- NOTE | 2017-08-17 10:17 | Medical Consult ---
Consultation Date of Consultation: August 17, 2017. Attending Physician: Reason for Consultation: Abdominal pain History of Present Illness This patient is a 66-year-old female with a history of GERD, chronic tension headaches, depression, rosacea, thyroid nodule, osteoarthritis, and peripheral edema, as well as cholecystectomy in September of 2016. She has had approximately a 1-year history of episodic epigastric pain which occurs about once per month. She presented to the ER today with an episode which woke her from sleep around 0300. She tried taking pepto bismol and took 2 percocet with no relief. The pain radiates to her back and is constant. She has associated nausea and green emesis without blood. She denies blood or changes in her stool, no diarrhea or constipation. She also denies fevers and chills. She cannot identify any triggers or exact timing of the episodes. She notes that she returned from a two week cruise yesterday where she drank more alcohol than normal. She also states that she takes Excedrin and 800mg of ibuprofen every 'couple days' for headaches and arthralgias. She also recently began 1 of her intermittent courses of doxycycline for rosacea which was exacerbated on the same cruise mentioned above. She states that these episodes all began after she had starting to lose weight using [employer] from which she has lost 30 pounds since May 2016. She was diagnosed with biliary colic and subsequently underwent cholecystectomy in September of 2016. Since then, she has had 8 more episodes of pain that she feels is identical to the colic before her surgery. Sometimes the pain lasts on the order of seconds to minutes. One of her episodes required her to go to the ED and be admitted while in [place] in 02/2017 where she had a rather extensive workup, but no EGD. She is also having this pain evaluated and [facility]. She is to return to their clinic within the next few weeks for EGD and colonoscopy. Her last colonoscopy showed diverticulosis, but she has never had an EGD. And upper GI series in May of this year showed a sliding hiatal hernia. In her time in the ED today, she has received 10 mg of morphine x2, 8 mg of Zofran, and 25 mg of benadryl for pain and nausea. This brought her pain initially down to a 5 and then ultimately completely gone. The hospitalist service was consulted for admission for intractable abdominal pain, but now that she feels well, she prefers to go home rather than be admitted. Past Medical/Surgical History PMHx Osteoarthritis GERD Major depressive disorder Chronic tension headaches Rosacea Peripheral edema Chronic epigastric pain Dry eyes PSHx Cholecystectomy Septum repair Uvulectomy Adhesion removal from fallopian tube Tonsillectomy Family History Patient reports no known family medical history. Father: coronary artery disease , cancer (lung and gastric) Mother: HTN, congestive heart failure, diabetes, cancer (breast), no pertinent history (kidney disease) Social History Smoking Status: Former Smoker Alcohol Use: occasionally (normally 1 drink every 2-3 weeks, but will drink heavily on special occasions such as the cruise she just returned from) Drug Use: none Marital Status: Housing status: lives with significant other Occupational Status: unemployed Smoking Status: Former Smoker Drug Use: none Marital Status: Housing Status: lives with significant other Occupation Status: unemployed Allergies Coded Allergies: Sulfa Antibiotics (Verified Allergy, Intermediate, Rash and feet swelling , 08/17/17) Citalopram (Verified Allergy, Mild, RASH AND FEET SWELLING, 08/17/17) Carisoprodol (Verified Allergy, Unknown, DIZZINESS, 08/17/17) Topiramate (Unverified Allergy, Unknown, DRY EYES EXCERBATED, 08/17/17) Hydromorphone (Verified Adverse Reaction, Mild, HALLUCINATIONS , 08/17/17) Sumatriptan (Verified Adverse Reaction, Mild, UNDER SKIN SENSATION CREEPING, 08/17/17) Meperidine (Verified Adverse Reaction, Unknown, VOMITING, 08/17/17) Home Medications Doxycycline 50 mg p.o. twice daily Ibuprofen 800 mg p.o. daily every 3 days Excedrin headache as needed Nexium 40 mg p.o. twice daily Bupropion XL 450 mg once daily Lamictal 150 mg p.o. once daily Mometasone nasal spray Xidra eyedrops Current Inpatient Medications Current Inpatient Medications Medications (Trade) Dose Ordered Sig/Natalya Route Start Time Stop Time Status Last Admin Dose Admin Ioversol (Optiray 320) 92 ml UD PRN IV 08/17/17 06:30 08/21/17 06:29 Morphine Sulfate (MoRPHine SULFATE INJ) 6 mg Q1H PRN IV 08/17/17 07:15 08/31/17 07:14 Review of Systems Constitutional: No fever, No chills Eyes: No problem reported ENT: No problem reported Cardiovascular: No chest pain Abdomen: + pain, + nausea, + vomiting, No diarrhea, No constipation, No GI bleeding Musculoskeletal: No problem reported Genitourinary - Female: No problem reported Neurologic: + problem reported (Chronic tension headaches every 2-3 days) Psychiatric: No problem reported Endocrine: No problem reported Hematologic / Lymphatic: No problem reported Integumentary: No problem reported Allergic / Immunologic: No problem reported Physical Exam Date Time Temp Pulse Resp B/P (MAP) Pulse Ox O2 Delivery O2 Flow Rate FiO2 08/17/17 08:50 128/65 08/17/17 08:36 80 16 08/17/17 08:35 84 08/17/17 08:06 72 17 08/17/17 07:58 91 Room Air 08/17/17 07:36 71 12 08/17/17 07:06 74 13 08/17/17 07:01 140/82 08/17/17 05:48 167/89 08/17/17 05:42 70 12 91 Room Air 08/17/17 05:13 Room Air 08/17/17 05:12 72 14 98 Room Air 08/17/17 04:59 73 08/17/17 04:47 36.3 72 24 182/87 98 Room Air General Appearance: WD/WN, no apparent distress Head: normocephalic, atraumatic Eyes: normal inspection, PERRL, EOMI, sclerae normal ENT: normal ENT inspection, hearing grossly normal, TMs normal, pharynx normal Neck: supple, no adenopathy, thyroid normal, no JVD, trachea midline Respiratory/Chest: lungs clear, normal breath sounds, no respiratory distress, no accessory muscle use Cardiovascular: regular rate, rhythm, no edema, no gallop, no JVD, no murmur, normal peripheral pulses Abdomen/GI: normal bowel sounds, non tender, soft, no organomegaly, no pulsatile mass Back: normal inspection Extremities/Musculoskelatal: normal inspection, no calf tenderness, normal capillary refill, no pedal edema, normal range of motion Neurologic/Psych: lottery clerk II-XII nml as tested, no motor/sensory deficits, alert, normal mood/affect, oriented x 3 Skin: normal color, warm/dry, no rash Laboratory Results Last 24 Hours Test 08/17/17 05:01 08/17/17 06:56 White Blood Count 6.11 K/uL Red Blood Count 4.58 M/uL Hemoglobin 13.4 g/dL Hematocrit 39.0 % Mean Corpuscular Volume 85.2 fL Mean Corpuscular Hemoglobin 29.3 pg Mean Corpuscular Hemoglobin Concent 34.4 g/dl Platelet Count 335 K/uL Mean Platelet Volume 8.6 fL Neutrophils (%) (Auto) 46.4 % Lymphocytes (%) (Auto) 40.9 % Monocytes (%) (Auto) 6.9 % Eosinophils (%) (Auto) 5.1 % Basophils (%) (Auto) 0.5 % Neutrophils # (Auto) 2.84 K/uL Lymphocytes # (Auto) 2.50 K/uL Monocytes # (Auto) 0.42 K/uL Eosinophils # (Auto) 0.31 K/uL Basophils # (Auto) 0.03 K/uL RDW Standard Deviation 41.7 fL RDW Coefficient of Variation 13.5 % Immature Granulocyte % (Auto) 0.2 % Immature Granulocyte # (Auto) 0.01 K/uL Sodium Level 136 mmol/L Potassium Level 3.8 mmol/L Chloride Level 102 mmol/L Carbon Dioxide Level 29 mmol/L Anion Gap 5.0 mmol/L Blood Urea Nitrogen 17 mg/dl Creatinine 1.02 mg/dl Est Creatinine Clear Calc Drug Dose 55.5 ml/min Estimated GFR () 66.8 Estimated GFR (Non- 57.7 BUN/Creatinine Ratio 17.1 Random Glucose 96 mg/dl Calcium Level 8.6 mg/dl Total Bilirubin 0.3 mg/dl Direct Bilirubin < 0.1 mg/dl Aspartate Amino Transf (AST/SGOT) 21 U/L Alanine Aminotransferase (ALT/SGPT) 29 U/L Alkaline Phosphatase 82 U/L Troponin I < 0.015 ng/ml C-Reactive Protein < 0.29 mg/dl Total Protein 7.4 gm/dl Albumin 3.8 gm/dl Lipase 161 U/L Hepatitis C Antibody Screen NEG Urine Color YELLOW Urine Appearance CLEAR Urine pH 6.5 Urine Specific [place] 1.043 Urine Protein NEG Urine Glucose (UA) NEG Urine Ketones NEG Urine Occult Blood NEG Urine Nitrite NEG Urine Bilirubin NEG Urine Urobilinogen NEG Urine Leukocyte Esterase SMALL Urine WBC (Auto) 1-5 /hpf Urine RBC (Auto) 0-4 /hpf Urine Hyaline Casts (Auto) 1-5 /lpf Urine Epithelial Cells (Auto) >30 /lpf Urine Bacteria (Auto) NEG Radiology: CT ABD/PELVIS IV CONTRAST ONLY CLINICAL HISTORY: Severe Epigastric pain COMPARISON STUDY: None. TECHNIQUE: Following the IV administration of 92 mL of Optiray-320, CT scan of the abdomen and pelvis was performed from the lung bases to the proximal femurs. Images are reviewed in the axial, sagittal, and coronal planes. IV contrast was administered without complication. A dose lowering technique was utilized adhering to the principles of ALARA. CT DOSE: 339.72 mGy.cm FINDINGS: Lower chest: There are mild dependent atelectatic changes Liver: No focal hepatic masses are visualized. There is minimal central ductal prominence. Gallbladder: Surgically absent. Common bile duct measures 1 cm. Spleen: Normal in size and attenuation. Pancreas: Unremarkable. Adrenal glands: Unremarkable. Kidneys: There is symmetric renal cortical enhancement. The kidneys are normal in size without hydronephrosis. Bowel: There are no transition zones indicate bowel obstruction. The appendix appears normal. There is colonic diverticulosis. There are no acute peridiverticular inflammatory changes. Peritoneum: There is no intraperitoneal free air or abdominal ascites. Vasculature: The abdominal aorta is normal in course and caliber. Adenopathy: None. Pelvic viscera: The bladder, and pelvic viscera are unremarkable. Skeletal structures: There are postsurgical changes of a total right hip arthroplasty. IMPRESSION: 1. No evidence of bowel obstruction. No evidence of free air 2. Normal appendix. Diverticulosis. No evidence of acute diverticulitis 3. Surgically absent gallbladder. Mild ductal prominence, the common bile duct measures 10 mm. While nonspecific, this potentially is related to the patient's prior cholecystectomy. An MRCP performed March 2017 revealed no common bile duct calculi. The common bile duct does however appear larger than on that prior study Assessment & Plan This patient is a 66-year-old female with a history of GERD, chronic tension headaches, depression, rosacea, thyroid nodule, osteoarthritis, and peripheral edema, as well as cholecystectomy in September of 2016. She has had approximately a 1-year history of episodic epigastric pain which occurs about once per month. She presented to the ER today with 1 of her episodes of intractable epigastric pain. She received a total of 20 mg of morphine, 8 mg of Zofran, and 25 mg of Benadryl. Her laboratory values are all normal. CT the abdomen pelvis does show a dilated CBD, but this could be from being in a postcholecystectomy state. There is no evidence of choledocholithiasis. After a 45 minute long examination, interview, and lengthy discussion with the patient and her , she has decided that she does not want to be admitted for further evaluation or treatment at this time. Her pain is gone, she is feeling improved. We discussed that this could be peptic ulcer disease given her overuse of NSAIDs, aspirin, and with taking doxycycline. She could also have sphincter of Oddi dysfunction, however she has no evidence of pancreatitis on imaging or lab work. -I suggest that she continue her twice daily dosing of Nexium, add on Carafate 1 g p.o. 4 times daily which I prescribed for her. I also suggested that she stop taking all NSAIDs, Excedrin, and stop taking doxycycline. She certainly needs close follow-up with gastroenterology whom she is Chuckie seen at [facility]. She is planning on having an EGD and colonoscopy there in the near future. Discussed with her that should she develop tarry stools, hematemesis, hematochezia, severe abdominal pain that recurs, or feels faint, lightheaded, chest pain or shortness of breath, that she return immediately to the emergency room. To replace NSAIDs and Excedrin for her chronic tension headaches, I have suggested that she try cyclobenzaprine as a muscle relaxer instead, along with acetaminophen. I have also sent her a prescription for cyclobenzaprine along to her pharmacy. She should follow-up with her PCP within 2 days after discharge from the ER. Additional Copies To Ty Tate M.D.
[2017-08-17] MEDS ORDERED: SUCRALFATE 1 GM TAB PO STA (10:24)
[2017-08-17 11:03] VITALS: BP 139/75; PULSE 74; TEMP 36.3; O2SAT 92
--- NOTE | 2017-08-17 14:05 | Medical Student: [facility] ---
Med Student History & Physical Date & Time of Service: August 17, 2017 at 13:28 Chief Complaint: Gallbladder Attack, Chest/Stomach Pain Primary Care Physician: Ty Tate M.D. History of Present Illness Source: patient, partner This is a 66-year-old female with a history of GERD, cholecystectomy in September, and a 1-year history of episodic epigastric pain who presents with "15/10" epigastric pain which woke her from sleep around 0300. She tried taking pepto bismol and took 2 percocet with no relief. The pain radiates to her back and is constant. She has associated nausea and green emesis without blood. She denies blood or changes in her stool, diarrhea, or constipation. She also denies fevers and chills. She cannot identify any triggers or exact timing of the episodes. She notes that she returned from a two week cruise yesterday where she drank more alcohol than normal. She also states that she takes Excedrin and 800mg of ibuprofen every 'couple days' for headaches and arthralgias. She states that these episodes all began after she had starting to lose weight using [employer] from which she has lost 30 pounds since May 2016. She was diagnosed with biliary colic and subsequently underwent cholecystectomy in September of 2016. Since then, she has had 8 more episodes of pain that she feels is identical to the colic before her surgery. Sometimes the pain lasts on the order of seconds to minutes. One of her episodes required her to go to the ED and be admitted while in [place]. She is also having this pain evaluated and [facility]. She is to return to their clinic within the next few weeks for EGD and colonoscopy. Her last colonoscopy showed diverticulosis, and upper GI series in May of this year showed a sliding hiatal hernia. In her time in the ED today, she has received 10 mg of morphine x2, 8 mg of Zofran, and 25 mg of benadryl for pain and nausea. This brought her pain initially down to a 5 and then ultimately completely gone. Now that she feels well, she prefers to go home rather than be admitted. Past Medical/Surgical History PMHx Osteoarthritis GERD Major depressive disorder Migraine/tension headaches Rosacea Intermittent lower extremity edema Chronic epigastric pain Dry eyes PSHx Cholecystectomy Septum repair Uvulectomy Adhesion removal from fallopian tube Tonsillectomy Family History Father: coronary artery disease (10 year history of 1/4 to 1/ ppd), cancer ( lung and gastric) Mother: HTN, congestive heart failure, diabetes, cancer (breast), no pertinent history (kidney disease) Social History Smoking Status: Former Smoker Alcohol Use: occasionally (normall 1 drink every 2-3 weeks, but will drink heavily on special occasions such as the cruise she just returned from) Drug Use: none Marital Status: Housing status: lives with significant other Occupational Status: unemployed Immunizations History of Influenza Vaccine: Unknown History of Tetanus Vaccine?: Unknown History of Pneumococcal: Unknown History of Hepatitis B Vaccine: Unknown Allergies Coded Allergies: Sulfa Antibiotics (Verified Allergy, Intermediate, Rash and feet swelling , 08/17/17) Citalopram (Verified Allergy, Mild, RASH AND FEET SWELLING, 08/17/17) Carisoprodol (Verified Allergy, Unknown, DIZZINESS, 08/17/17) Topiramate (Unverified Allergy, Unknown, DRY EYES EXCERBATED, 08/17/17) Hydromorphone (Verified Adverse Reaction, Mild, HALLUCINATIONS , 08/17/17) Sumatriptan (Verified Adverse Reaction, Mild, UNDER SKIN SENSATION CREEPING, 08/17/17) Meperidine (Verified Adverse Reaction, Unknown, VOMITING, 08/17/17) Medications Amoxicillin (Amoxil), 2,000 MG PO UD [id number]-Erhcgaqi (Excedrin Migraine), 2 TAB PO PRN PRN for Migraine Bupropion HCl (Bupropion HCl Xl), 300 MG PO QAM Bupropion Hcl (Bupropion Hcl Xl), 150 MG PO QAM Cyclobenzaprine HCl (Cyclobenzaprine HCl), 10 MG PO Q8 PRN for tension headache Doxycycline Monohydrate (Monodox), 50 MG PO DAILY Esomeprazole Magnesium (Nexium), 40 MG PO BID Furosemide (Lasix), 40 MG PO DAILY PRN for MD ORDER Hydrocodone/Acetaminophen 5MG/325MG ([place] 5MG/325MG), 1 TABLET PO DIRECTED PRN for Pain Ibuprofen Tab (Advil), 600-800 MG PO PRN Lamotrigine (Lamictal), 150 MG PO QAM Lorazepam (Ativan), 0.5 MG PO DIRECTED PRN for Anxiety Mometasone Furoate ([place]), 1 APPLN TOP BID Multiple Vitamins W/ Minerals (Alive Womens 50+), 2 TAB PO DAILY Potassium Chloride (Klor-Con Ext Rel), 8 MEQ PO DAILY PRN for IF TAKING LASIX Sucralfate (Carafate), 10 ML PO QID [xidia], 1 DROP OP BID Review of Systems Constitutional: No fever, No chills ENT: No nasal symptoms, No sore throat Respiratory: No cough, No wheezing, No shortness of breath Cardiovascular: No chest pain Abdomen: + nausea, + vomiting, No diarrhea, No constipation Musculoskeletal: + joint pain, No muscle pain, No calf pain Genitourinary - Female: No dysuria, No urinary frequency, No vaginal bleeding, No vaginal discharge Psychiatric: No depression symptoms Integumentary: No problem reported Physical Exam Vital Signs (24 Hours) Date Time Temp Pulse Resp B/P (MAP) Pulse Ox O2 Delivery O2 Flow Rate FiO2 08/17/17 11:03 36.3 74 15 139/75 92 08/17/17 10:25 74 15 92 08/17/17 10:01 139/75 08/17/17 09:55 70 19 99 08/17/17 09:25 69 19 93 08/17/17 09:01 117/73 08/17/17 08:55 75 18 89 08/17/17 08:50 128/65 08/17/17 08:36 80 16 08/17/17 08:35 84 08/17/17 08:06 72 17 08/17/17 07:58 91 Room Air 08/17/17 07:36 71 12 08/17/17 07:06 74 13 08/17/17 07:01 140/82 08/17/17 05:48 167/89 08/17/17 05:42 70 12 91 Room Air 08/17/17 05:13 Room Air 08/17/17 05:12 72 14 98 Room Air 08/17/17 04:59 73 08/17/17 04:47 36.3 72 24 182/87 98 Room Air General Appearance: + pertinent finding (Pt is laying in bed, intermittently nauseous) Eyes: PERRL, sclerae normal ENT: pharynx normal Neck: no adenopathy, thyroid normal Respiratory/Chest: lungs clear, normal breath sounds, no respiratory distress Cardiovascular: regular rate, rhythm, no gallop, no murmur Abdomen/GI: normal bowel sounds, non tender, soft, no organomegaly Extremities/Musculoskelatal: no calf tenderness, no pedal edema Neurologic/Psych: alert Diagnostics Laboratory Results Results Past 24 Hours Test 08/17/17 05:01 08/17/17 06:56 Range/Units White Blood Count 6.11 4.8-10.8 K/uL Red Blood Count 4.58 4.2-5.4 M/uL Hemoglobin 13.4 12.0-16.0 g/dL Hematocrit 39.0 37-47 % Mean Corpuscular Volume 85.2 80-100 fL Mean Corpuscular Hemoglobin 29.3 25-34 pg Mean Corpuscular Hemoglobin Concent 34.4 32-36 g/dl Platelet Count 335 130-400 K/uL Mean Platelet Volume 8.6 7.4-10.4 fL Neutrophils (%) (Auto) 46.4 % Lymphocytes (%) (Auto) 40.9 % Monocytes (%) (Auto) 6.9 % Eosinophils (%) (Auto) 5.1 % Basophils (%) (Auto) 0.5 % Neutrophils # (Auto) 2.84 1.4-6.5 K/uL Lymphocytes # (Auto) 2.50 1.2-3.4 K/uL Monocytes # (Auto) 0.42 0.11-0.59 K/uL Eosinophils # (Auto) 0.31 0-0.5 K/uL Basophils # (Auto) 0.03 0-0.2 K/uL RDW Standard Deviation 41.7 36.4-46.3 fL RDW Coefficient of Variation 13.5 11.5-14.5 % Immature Granulocyte % (Auto) 0.2 % Immature Granulocyte # (Auto) 0.01 0.00-0.02 K/uL Sodium Level 136 136-145 mmol/L Potassium Level 3.8 3.5-5.1 mmol/L Chloride Level 102 98-107 mmol/L Carbon Dioxide Level 29 21-32 mmol/L Anion Gap 5.0 3-11 mmol/L Blood Urea Nitrogen 17 7-18 mg/dl Creatinine 1.02 0.60-1.20 mg/dl Est Creatinine Clear Calc Drug Dose 55.5 ml/min Estimated GFR () 66.8 Estimated GFR (Non- 57.7 BUN/Creatinine Ratio 17.1 10-20 Random Glucose 96 70-99 mg/dl Calcium Level 8.6 8.5-10.1 mg/dl Total Bilirubin 0.3 0.2-1 mg/dl Direct Bilirubin < 0.1 0-0.2 mg/dl Aspartate Amino Transf (AST/SGOT) 21 15-37 U/L Alanine Aminotransferase (ALT/SGPT) 29 12-78 U/L Alkaline Phosphatase 82 45-117 U/L Troponin I < 0.015 0-0.045 ng/ml C-Reactive Protein < 0.29 0-0.29 mg/dl Total Protein 7.4 6.4-8.2 gm/dl Albumin 3.8 3.4-5.0 gm/dl Lipase 161 73-393 U/L Hepatitis C Antibody Screen NEG NEG Urine Color YELLOW Urine Appearance CLEAR CLEAR Urine pH 6.5 4.5-7.5 Urine Specific [place] 1.043 1.000-1.030 Urine Protein NEG NEG Urine Glucose (UA) NEG NEG Urine Ketones NEG NEG Urine Occult Blood NEG NEG Urine Nitrite NEG NEG Urine Bilirubin NEG NEG Urine Urobilinogen NEG NEG Urine Leukocyte Esterase SMALL NEG Urine WBC (Auto) 1-5 0-5 /hpf Urine RBC (Auto) 0-4 0-4 /hpf Urine Hyaline Casts (Auto) 1-5 0-5 /lpf Urine Epithelial Cells (Auto) >30 0-5 /lpf Urine Bacteria (Auto) NEG NEG EKG Sinus rhythm @72 bpm with PAC. [place] and transition are normal with good RWP. DC , QRS, and QT are not prolonged. There is no hypertrophy, q waves, repolarization abnormality, or ST-segment changes. Interpretation: Normal EKG Normal EKG Impression Assessment and Plan This is a 66-year-old female with a history of GERD, chronic episode epigastric pain s/p cholecystectomy who presents with an episode of severe epigastric pain radiating to the back with normal laboratory and imaging. CT of the abdomen only shows some CBD dilation without stone and diverticulosis. EPIGASTRIC PAIN ACS has been ruled out with negative troponins, no signs of ischemia on EKG, and symptoms uncharacteristic of angina. We considered pancreatitis, but lipase is normal. With history of GERD and gastritis risk factors (frequent excedrin and ibuprofen, doxycycline, and recent alcohol use) we are considering an acute gastritis or peptic ulcer disease. This should be evaluated with upper endoscopy. In addition, because the pt says the pain is identical to the pain she had before her cholecystectomy, we suspect that the pain is either not biliary in nature, or may be caused by sphincter of Oddi dysfunction. Both of these must be evaluated by a coal pulverizing operator. After the patient showed symptomatic improvement, she desired to go home. The plan was to have her schedule the endoscopy as an outpatient. Before her departure, she received one dose of sucralfate to help coat the stomach in the case of gastritis or ulceration. We have recommended that she stop taking the Excedrin, ibuprofen, and doxycycline to decrease risk of gastritis. We have prescribed sucralfate and increased her esomeprazole dose to 40mg BID. HEADACHES She usually takes excedrin and ibuprofen as needed for headache. She believes the headaches are tension headaches and is concerned about how to control her symptoms while holding these medications. We have prescribed 10mg of cyclobenzaprine for this, and ask that she follow up with her PCP to find a non- grastropathic option for her. GERD Increase in esomeprazole as above Rosacea She may continue topical steroid, but should hold doxycycline Major depressive disorder She may continue lamotrigine and bupropion. Disposition: Discharge home holding excedrin, ibuprofen, and doxycycline. Initiate sucralfate, increased esomeprazole, and cyclobenzaprine as above. Follow-up with PCP and GI physician for further workup and management as she is now stable. Level of Care discharge home Advanced Directives Existing Living Will: Yes Existing Power of Automotive Mechanical Engineer: Yes Note Total Time: Critical Care > 74 minutes
[2017-08-17] MEDS ORDERED: ESOM1CAP34 PO (21:30)
[2017-08-17] MEDS ORDERED: LIFI5DRO OPB (21:30)
[2017-08-17] MEDS ORDERED: HYDR-4313 PO (21:30)
[2017-08-17] MEDS ORDERED: BUPRTAB51 PO (21:30)
[2017-08-17] MEDS ORDERED: POTA1CAP PO (21:30)
[2017-08-17] MEDS ORDERED: MULT-730 PO (21:30)
[2017-08-17] MEDS ORDERED: BUPRTAB PO (21:30)
[2017-08-17] MEDS ORDERED: FRS/40 PO (21:30)
[2017-08-17] MEDS ORDERED: [UNRECOGNIZED DRUG - CODE] TOP (21:30)
[2017-08-17] MEDS ORDERED: LAMO150T PO (21:30)
[2017-08-17] MEDS ORDERED: AMOX500C3 PO (21:51)
[2017-08-17] MEDS ORDERED: MELATAB2 PO (21:51)
[2017-08-17] MEDS ORDERED: ONDA4TAB46 PO (21:51)
[2017-08-17] MEDS ORDERED: IBUP-103 PO (21:51)
[2017-08-18] MEDS ORDERED: PROM1SUP19 PR (01:57)
== END 2017-08-17 10:50 | disposition home or self-care (01) ==
LOC: C.EDB 04:43
DX: R10.13 Epigastric pain (principal); K83.8 Other specified diseases of biliary tract; K21.9 Gastro-esophageal reflux disease without esophagitis; M54.5 Low back pain; M19.90 Unspecified osteoarthritis, unspecified site; Z87.891 Personal history of nicotine dependence; Z79.899 Other long term (current) drug therapy; Z88.2 Allergy status to sulfonamides; Z88.8 Allergy status to other drugs, medicaments and biological substances; Z88.5 Allergy status to narcotic agent

== ENCOUNTER 2017-08-17 20:50 | Emergency (ER) | payer OTHER ==
[~2017-08-17] VITALS: Ht 172.7 cm; Wt 69.3 kg
[~2017-08-17 20:50] MED LIST changes: +CRFL PO; +DOXY100C76 PO; +FLX10 PO; +HYDR-5688 PO; +LORA-741 PO; +MOME0.1O TOP; +[UNRECOGNIZED DRUG - OTHER] OP
[2017-08-17 21:03] VITALS: TEMP 36.8; Ht 172.7 cm; Wt 69.3 kg
[2017-08-17] MEDS ORDERED: SODIUM CHLORIDE 0.9% 1000ML 1,000 ML IV STA (21:29)
[2017-08-17] MEDS ORDERED: BUPRTAB PO (21:30)
[2017-08-17] MEDS ORDERED: MULT-730 PO (21:30)
[2017-08-17] MEDS ORDERED: LAMO150T PO (21:30)
[2017-08-17] MEDS ORDERED: CRFL PO (21:30)
[2017-08-17] MEDS ORDERED: POTA1CAP PO (21:30)
[2017-08-17] MEDS ORDERED: LORA-741 PO (21:30)
[2017-08-17] MEDS ORDERED: ESOM1CAP34 PO (21:30)
[2017-08-17] MEDS ORDERED: BUPRTAB51 PO (21:30)
[2017-08-17] MEDS ORDERED: LIFI5DRO OPB (21:30)
[2017-08-17] MEDS ORDERED: [UNRECOGNIZED DRUG - CODE] TOP (21:30)
[2017-08-17] MEDS ORDERED: FRS/40 PO (21:30)
[2017-08-17] MEDS ORDERED: HYDR-4313 PO (21:30)
[2017-08-17] MEDS ORDERED: FENTANYL CITRATE INJ 50 MCG/1 ML 2 ML VIAL IV STA (21:39)
[2017-08-17] MEDS ORDERED: ONDANSETRON INJ 2 MG/ML 2 ML VIAL IV STA ×2 (21:39→23:56)
[2017-08-17 21:46] LABS: BASO % 0.3 %; BASO ABS # 0.02 K/uL (0-0.2); EOS % 0.5 %; EOS ABS # 0.03 K/uL (0-0.5); HEMATOCRIT 36.5 % (37-47); HEMOGLOBIN 12.8 g/dL (12.0-16.0); IG# 0.02 K/uL (0.00-0.02); LYMPH % 18.2 %; LYMPH ABS # 1.19 K/uL (1.2-3.4); MEAN CELL VOLUME 84.9 fL (80-100); MEAN CORPUSCULAR HEMOGLOBIN 29.8 pg (25-34); MEAN CORPUSCULAR HGB CONC 35.1 g/dl (32-36); MEAN PLATELET VOLUME 8.4 fL (7.4-10.4); MONO % 5.7 %; MONO ABS # 0.37 K/uL (0.11-0.59); NEUT ABS # 4.91 K/uL (1.4-6.5); PLATELET COUNT 290 K/uL (130-400); RED CELL DISTRIBUTION WIDTH CV 13.6 % (11.5-14.5); RED CELL DISTRIBUTION WIDTH SD 41.3 fL (36.4-46.3); WHITE BLOOD COUNT 6.54 K/uL (4.8-10.8)
[2017-08-17] MEDS ORDERED: ONDA4TAB46 PO (21:51)
[2017-08-17] MEDS ORDERED: AMOX500C3 PO (21:51)
[2017-08-17] MEDS ORDERED: MELATAB2 PO (21:51)
[2017-08-17] MEDS ORDERED: IBUP-103 PO (21:51)
[2017-08-17 22:19] LABS: ALBUMIN 3.6 gm/dl (3.4-5.0); CALCIUM 8.6 mg/dl (8.5-10.1); CREATININE 0.63 mg/dl (0.60-1.20); POTASSIUM 3.7 mmol/L (3.5-5.1); TOTAL PROTEIN 6.8 gm/dl (6.4-8.2)
[2017-08-17] MEDS ORDERED: LORAZEPAM 1 MG TAB SL STA (23:56)
--- NOTE | 2017-08-18 01:15 | EMERGENCY ROOM VISIT NOTE ---
History Report prepared by Fritz: Jing Lam Under the Supervision of: Dr. Charles Galloway M.D. First contact with patient: 21:29 Chief Complaint: NAUSEA Stated Complaint: NAUSEA,VOMITING FROM EARLIER ER VISIT Nursing Triage Summary: vomiting, and unable to keep food and fluids down History of Present Illness The patient is a 66 year old female who presents to the Emergency Room with complaints of intermittent nausea beginning this morning. She thought her nausea was caused from the morphine she received earlier today at the ED for her abdominal pain, but then when she lied down at home, she vomited. She also has a headache which she rates as a 5/10 in severity. Her vomiting has not allowed her to keep any food or fluids down. She is accompanied by her who states that she has these attacks every 6-8 weeks. Pt denies LOC, fevers, chills, diaphoresis, visual changes, neck pain, chest pain, breathing difficulties, abdominal pain, back pain, melena, hematochezia, urinary symptoms , numbness, weakness, lymphadenopathy, rash, or other complaints. Source of History: patient Onset: this morning Position: abdomen Symptom Intensity: 5/10 in severity Timing: intermittent Associated Symptoms: + headache, + vomiting Review of Systems See HPI for pertinent positives and negatives. A total of ten systems were reviewed and were otherwise negative. Past Medical & Surgical Medical Problems: (1) Deviated nasal septum (2) Low back pain (3) Osteoarthritis (4) Right Hip DJD Family History Patient reports no known family medical history. Social History Smoking Status: Former Smoker Alcohol Use: occasionally Drug Use: none Marital Status: Housing Status: lives with significant other Occupation Status: unemployed Current/Historical Medications Scheduled Bupropion (Wellbutrin-Xl), 300 MG PO DAILY Bupropion Hcl (Wellbutrin Xl), 1 TAB PO QAM Doxycycline Hyclate (Doxycycline Hyclate), 1 CAP PO BID Esomeprazole Magnesium (Esomeprazole Magnesium), 1 CAP PO BID Ibuprofen Tab (Advil), 600-800 MG PO PRN Lamotrigine (Lamictal), 1 TAB PO DAILY Lifitegrast (Xiidra), 1 DROP OPB BID Mometasone Furoate (Mometasone Furoate), 1 APPLN TOP BID Multiple Vitamins W/ Minerals (Alive Womens 50+), 2 TAB PO DAILY Sucralfate (Carafate), 10 ML PO QID Scheduled PRN Acetaminophen/Hydrocodone (Hydrocodone/Acetaminophen 5-325 mg), 1 TAB PO DAILY PRN for Pain Amoxicillin (Amoxil), 2,000 MG PO UD PRN for DENTAL TREATMENT Furosemide (Lasix), 40 MG PO DAILY PRN for FLUID RETENTION Lorazepam (Ativan), 0.5 MG PO for UD Melatonin (Melatonin Maximum Strengt), 1 TAB PO HS PRN for Sleep Ondansetron Hcl (Zofran), 4 MG PO for Nausea Potassium Chloride (Potassium Chloride Er), 1 CAP PO DAILY PRN for WITH LASIX Promethazine (Phenergan Suppository), 25 MG ID Q6H PRN for Nausea Allergies Coded Allergies: Sulfa Antibiotics (Verified Allergy, Intermediate, Rash and feet swelling , 08/17/17) Citalopram (Verified Allergy, Mild, RASH AND FEET SWELLING, 08/17/17) Carisoprodol (Verified Allergy, Unknown, DIZZINESS, 08/17/17) Topiramate (Unverified Allergy, Unknown, DRY EYES EXCERBATED, 08/17/17) Hydromorphone (Verified Adverse Reaction, Mild, HALLUCINATIONS , 08/17/17) Sumatriptan (Verified Adverse Reaction, Mild, UNDER SKIN SENSATION CREEPING, 08/17/17) Meperidine (Verified Adverse Reaction, Unknown, VOMITING, 08/17/17) Physical Exam Vital Signs Date Time Temp Pulse Resp B/P (MAP) Pulse Ox O2 Delivery O2 Flow Rate FiO2 08/18/17 01:10 76 18 133/71 98 Room Air 08/18/17 00:08 80 18 147/83 95 Room Air 08/17/17 22:30 72 18 141/74 92 Room Air 08/17/17 22:24 80 08/17/17 21:03 36.8 82 18 169/77 91 Room Air Physical Exam GENERAL: Awake, alert, uncomfortable appearing, no distress HENT: Normocephalic, atraumatic. TM's normal. Oropharynx unremarkable. EYES: PERRL. EOMI. Normal conjunctiva. Sclera non-icteric. NECK: Supple. No nuchal rigidity. FROM. No bruit. RESPIRATORY: Breath sounds equal. No wheezes. No rhonchi. Normal respiratory effort. CARDIAC: Normal rate. Regular rhythm. No murmurs. No rubs. No JVD. GI: Soft, non distended. No tenderness to palpation. No rebound or guarding. No masses. RECTAL: Deferred. MUSCULOSKELETAL: Unremarkable. No edema. No discoloration. Gross motor strength symmetric. NEURO: Cranial nerves 2-12 grossly intact. Normal sensorium. No sensory or motor deficits noted. Speech normal. No pronator drift. SKIN: No rash or jaundice noted. LYMPH: No adenopathy. Medical Decision & Procedures ER Provider Diagnostic Interpretation: MRCP performed and revealed prior cholecystectomy. Common bile duct measures 9 mm. No evidence of choledocholithiasis or obstructing mass. Remainder of the solid organs appear grossly unremarkable. Laboratory Results 08/17/17 21:35 Red Blood Count 4.30, Mean Corpuscular Volume 84.9, Mean Corpuscular Hemoglobin 29.8, Mean Corpuscular Hemoglobin Concent 35.1, Mean Platelet Volume 8.4, Neutrophils (%) (Auto) 75.0, Lymphocytes (%) (Auto) 18.2, Monocytes (%) (Auto) 5.7, Eosinophils (%) (Auto) 0.5, Basophils (%) (Auto) 0.3, Neutrophils # (Auto) 4.91, Lymphocytes # (Auto) 1.19, Monocytes # (Auto) 0.37, Eosinophils # (Auto) 0.03, Basophils # (Auto) 0.02 08/17/17 21:35 Test 08/17/17 21:35 White Blood Count 6.54 K/uL (4.8-10.8) Red Blood Count 4.30 M/uL (4.2-5.4) Hemoglobin 12.8 g/dL (12.0-16.0) Hematocrit 36.5 % (37-47) Mean Corpuscular Volume 84.9 fL (80-100) Mean Corpuscular Hemoglobin 29.8 pg (25-34) Mean Corpuscular Hemoglobin Concent 35.1 g/dl (32-36) Platelet Count 290 K/uL (130-400) Mean Platelet Volume 8.4 fL (7.4-10.4) Neutrophils (%) (Auto) 75.0 % Lymphocytes (%) (Auto) 18.2 % Monocytes (%) (Auto) 5.7 % Eosinophils (%) (Auto) 0.5 % Basophils (%) (Auto) 0.3 % Neutrophils # (Auto) 4.91 K/uL (1.4-6.5) Lymphocytes # (Auto) 1.19 K/uL (1.2-3.4) Monocytes # (Auto) 0.37 K/uL (0.11-0.59) Eosinophils # (Auto) 0.03 K/uL (0-0.5) Basophils # (Auto) 0.02 K/uL (0-0.2) RDW Standard Deviation 41.3 fL (36.4-46.3) RDW Coefficient of Variation 13.6 % (11.5-14.5) Immature Granulocyte % (Auto) 0.3 % Immature Granulocyte # (Auto) 0.02 K/uL (0.00-0.02) Anion Gap 6.0 mmol/L (3-11) Est Creatinine Clear Calc Drug Dose 89.8 ml/min Estimated GFR () 109.1 Estimated GFR (Non- 94.1 BUN/Creatinine Ratio 19.2 (10-20) Calcium Level 8.6 mg/dl (8.5-10.1) Total Bilirubin 0.4 mg/dl (0.2-1) Direct Bilirubin 0.1 mg/dl (0-0.2) Aspartate Amino Transf (AST/SGOT) 47 U/L (15-37) Alanine Aminotransferase (ALT/SGPT) 77 U/L (12-78) Alkaline Phosphatase 90 U/L (45-117) Total Protein 6.8 gm/dl (6.4-8.2) Albumin 3.6 gm/dl (3.4-5.0) Lipase 148 U/L (73-393) Laboratory results reviewed by me Medications Administered Medications (Trade) Dose Ordered Sig/Natalya Route Start Time Stop Time Status Last Admin Dose Admin Sodium Chloride 1,000 ml @ 999 mls/hr Q1H1M STAT IV 08/17/17 21:29 08/17/17 22:29 DC 08/17/17 21:29 999 MLS/HR Ondansetron HCl (Zofran Inj) 4 mg NOW STAT IV 08/17/17 21:39 08/17/17 21:41 DC 08/17/17 22:14 4 MG Fentanyl Citrate (Fentanyl Inj) 50 mcg NOW STAT IV 08/17/17 21:39 08/17/17 21:41 DC 08/17/17 22:14 50 MCG Ondansetron HCl (Zofran Inj) 4 mg NOW STAT IV 08/17/17 23:56 08/17/17 23:58 DC 08/18/17 00:05 4 MG Lorazepam (Ativan Tab) 1 mg NOW STAT SL 08/17/17 23:56 08/17/17 23:58 DC 08/18/17 00:05 1 MG ED Course 2128: Ordered Sodium Chloride 1000 ml @ 999 mls/hr IV 2132: The patient was evaluated in room B4. A complete history and physical exam was performed. 2138: Ordered Fentanyl Inh 50 mcg IV, Zofran Inj 4 mg IV 2331: An MRI can accommodate an MRCP 2355: Ordered Lorazepam 1 mg SL, Zofran Inj 4 mg IV 9: Bleeding is controlled at this moment. He is reting comfortably. Records were received from [facility] at this time as well. Medical Decision Prior records/ancillary studies reviewed. Patient CT imaging performed earlier today recommended follow-up MRCP. Triage Nursing notes reviewed and agree them. Additional history obtained from the family. The patient's history was concerning for nausea, vomiting, and abdominal pain. Differential diagnosis: Etiologies such as gastroenteritis, food borne illness, infections, appendicitis , diverticulitis, inflammatory bowel disease, GI bleed, biliary pathology, as well as others were entertained. Physical examination findings: As above. Nonfocal neurologic examination. No peritoneal findings on abdominal examination. ER treatment provided: IV hydration 1 l NSS. 4 mg of IV Zofran Fentanyl 50 mcg IV On reassessment the patient felt better. Zofran 4 mg IV and Ativan 1 mg sublingual prior to MRI. Diagnostics interpretation by me: The labs revealed an unremarkable CBC and chemistry panel. There was slight elevation of the patient's AST which was different compared to this morning. Imaging studies: MRCP performed and revealed no acute findings to explain the patient's symptoms. Unfortunately patient has been dealing with significant GI issues recently. Her imaging from earlier today raise concerns for ductal dilatation and recommended repeat MRCP. Medicine was consulted but declined admission. As the patient has had recurrent symptoms and a slight elevation of her AST at this point, MRCP was felt to be the diagnostic test of choice to rule out any significant issues that would require inpatient treatment. This was performed and was negative. The exact etiology of her symptoms is not obvious at this time. She is feeling better with the above treatment. I did discuss adding Phenergan suppositories in case she vomits her oral Zofran. She and her were in agreement. She will contact her primary physician later today for further care as an outpatient. If she worsens in any way she will be back to the ER for reevaluation. I gave my usual and customary discussion regarding this issue. By the evaluation outlined above other emergent etiologies such as those listed in the differential, as well as others, were deemed relatively unlikely. The patient was educated about the findings as listed above. All questions were answered and the patient was pleased with the treatment. Return instructions were outlined and the patient was discharged in stable condition. The patient was referred to her PCP for follow-up for a recheck of the current condition. Medication Reconcilliation Current Medication List: was personally reviewed by me Blood Pressure Screening Patient's blood pressure: Elevated blood pressure Blood pressure disposition: Elevated BP felt to be situational Impression Primary Impression: Nausea and vomiting Scribe Attestation The scribe's documentation has been prepared under my direction and personally reviewed by me in its entirety. I confirm that the note above accurately reflects all work, treatment, procedures, and medical decision making performed by me. Departure Information Dispostion Home / Self-Care Prescriptions Promethazine (Phenergan Suppository) 25 Mg Supp 25 MG ID Q6H Y for Nausea, #4 SUPP 1 Refill Prov: Charles Galloway MD 08/18/17 Referrals Ty Tate M.D. (PCP) Patient Instructions [facility] Additional Instructions Continue current medications. Phenergan 25mg suppositories, one every six hours rectally for nausea. Follow-up with your primary physician later today for further management. Return to the ER for worsening abdominal pain, vomiting, fevers, bloody stools, or as needed.
[2017-08-18] MEDS ORDERED: PROM1SUP19 PR (01:57)
[2017-08-18] MEDS ORDERED: PROMETHAZINE HCL 25 MG SUPP PR STA (01:57)
[2017-08-18 02:13] VITALS: BP 148/79; PULSE 89; O2SAT 98
--- NOTE | 2017-08-18 06:58 | DIAGNOSTIC IMAGING REPORT ---
MRCP CLINICAL HISTORY: Elevated liver function tests, history of prior cholecystectomy, vomiting, abdominal pain. COMPARISON STUDY: CT scan dated 08/17/2017, MRCP dated 03/20/2017 FINDINGS: The gallbladder surgically absent. The pancreatic duct appears normal. Common bile duct is mildly dilated measuring 9 mm. No ductal filling defects are visualized. The spleen measures 11.2 cm in length. IMPRESSION: 1. Mildly dilated common bile duct measuring 9 mm. No ductal filling defects identified 2. Surgically absent gallbladder 3. Normal pancreatic duct Electronically signed by: Teddy Castellon M.D. 08/18/2017 6:57 AM Dictated Date/Time: 08/18/2017 6:54 AM
== END 2017-08-18 02:14 | disposition home or self-care (01) ==
LOC: C.EDB 20:51
DX: R11.2 Nausea with vomiting, unspecified (principal); M16.11 Unilateral primary osteoarthritis, right hip; Z87.891 Personal history of nicotine dependence; Z88.1 Allergy status to other antibiotic agents; Z88.8 Allergy status to other drugs, medicaments and biological substances; Z88.5 Allergy status to narcotic agent